=== PATIENT | female | born 1940 | race Caucasian/White ===

== ENCOUNTER 2016-08-13 12:41 | Observation (INO) | payer MEDICARE ==
[~2016-08-13] VITALS: Ht 167.6 cm; Wt 77.1 kg
[~2016-08-13 12:41] MED LIST: ALEV220T26 PO; COUM2.5T11 PO; FLUO20CA8 PO; METF500T PO; MULTIVITAMIN OR; PERC5TAB6 PO; SIMV20TA2 PO; VALA500T PO; VITMAIN D OR; citracal OR
--- NOTE | 2016-08-13 13:56 | REP ---
AP pelvis one-view and left hip two views: Comparisons 07/25/2014. AP pelvis: There are bilateral total hip arthroplasties,. There is question of a nondisplaced fracture of the left ischium. There is a fracture at the superior left pubic ramus at the left acetabulum. There is no fracture or dislocation of either arthroplasty. There are phleboliths inferiorly in the pelvis, unchanged. Left hip two views AP and frog-leg projections: There is a total hip arthroplasty. Nondisplaced fracture of the left ischium and nondisplaced fracture of the superior pubic ramus at the acetabulum are again noted. There is no fracture or dislocation of the arthroplasty or proximal femur. Signed by Tutu Waggnoer MD 08/13/2016 01:48 P
--- NOTE | 2016-08-13 14:02 | REP ---
Clinical: Trauma. Technique: AP, lateral, bilateral oblique, and coned-down views of the lumbosacral spine. Findings: Advanced multilevel degenerative changes include chronic levoconvex scoliosis, endplate sclerosis, anterior spurring, disc space narrowing and hypertrophic facet changes. No acute fracture / compression injury or subluxation. Impression: Advanced multilevel degenerative changes. No acute fracture or subluxation. Signed by Henry Michaels MD 08/13/2016 01:54 P
--- NOTE | 2016-08-13 14:57 | REP ---
Clinical: Pre admission. Pelvic fracture. Comparison: 10/09/2014 . Findings: The mediastinum and cardiac silhouette are stable and within normal limits for portable technique. The lung merlos are clear without acute consolidation, effusion, or pneumothorax. Skeletal structures are intact. Impression: Normal portable chest x-ray Signed by Henry Michaels MD 08/13/2016 02:48 P
[2016-08-13 15:14] LABS: MEAN CORPUSCULAR HEMOGLOBIN 35.7 pg (27.0-33.0); MEAN CORPUSCULAR HGB CONC 34.9 g/dl (32.0-36.5); MEAN CORPUSCULAR VOLUME 102.4 fl (80.0-96.0); RED CELL DISTRIBUTION WIDTH 12.9 % (11.5-14.5); WHITE BLOOD COUNT 8.4 K/mm3 (4.0-10.0)
[2016-08-13] MEDS ORDERED: VITMTA PO (15:16)
[2016-08-13] MEDS ORDERED: CITRTAB15 PO (15:16)
[2016-08-13] MEDS ORDERED: VITAD1000T PO (15:16)
[2016-08-13] MEDS ORDERED: VITA10002 PO (15:16)
[2016-08-13] MEDS ORDERED: FURO20TA2 PO (15:16)
[2016-08-13] MEDS ORDERED: PROP1TAB29 PO (15:16)
[2016-08-13] MEDS ORDERED: POTA20TA PO (15:18)
[2016-08-13] MEDS ORDERED: SPIR25TA2 PO (15:19)
[2016-08-13 15:32] LABS: ALBUMIN 3.2 GM/DL (3.2-5.2); ALBUMIN/GLOBULIN RATIO 0.97 (1.00-1.93); BILIRUBIN,DIRECT 0.3 MG/DL (0.0-0.2); BILIRUBIN,TOTAL 1.3 MG/DL (0.2-1.0); CALCIUM LEVEL 9.3 MG/DL (8.8-10.2); CREATININE FOR GFR 1.04 MG/DL (0.55-1.02); GLOMERULAR FILTRATION RATE 54.8 (>39); POTASSIUM SERUM 4.2 MEQ/L (3.5-5.1); TOTAL PROTEIN 6.5 GM/DL (6.4-8.2)
[2016-08-13 17:17] VITALS: BP 106/51
--- NOTE | 2016-08-13 18:04 | HPE ---
DATE OF ADMISSION: 08/13/2016 PRIMARY CARE PHYSICIAN: Dr. Carlos Escalera ATTENDING PHYSICIAN: Dr. Elisabeth Inman CHIEF COMPLAINT: Fall on driveway. HISTORY OF THE PRESENT ILLNESS: This is a 75-year-old female with a past medical history significant for osteoporosis, depression, fatty liver, history of type 2 diabetes mellitus, which is diet controlled, who presented today to the emergency department with a history of acute fall on her driveway. The patient reports falling on her driveway approximately at 11:00 a.m. this morning. She was returning home at the time. She reports slipping on her right foot and impacting on her left hip and left arm. She denies any loss of consciousness during or after the episode. She was able to crawl from her position into her home. She eventually settled down into a chair. She attempted, to stand up from the chair but was unable to. After two attempts, she decided to call 911. She was brought to the hospital by emergency medical services (EMS). Currently, the patient denies being in any pain. She does report having acute pain whenever she moves her left hip. She has full range of motion in the rest of her extremities including her right leg. At this time, the patient denies any fevers, shortness of breath, dyspnea, chest pain. She denies any numbness or tingling in the extremities. PAST MEDICAL HISTORY: Osteoporosis. Depression. Fatty liver. History of diet-controlled type 2 diabetes mellitus. Hypercholesterolemia. PAST SURGICAL HISTORY: Right hip arthroplasty in 2006. Left hip arthroplasty in 2014. Hysterectomy with bilateral oophorectomy in 1979. MEDICATIONS: - spironolactone 25 mg by mouth two times per day - propranolol 20 mg by mouth two times a day - fluoxetine 20 mg by mouth daily - valacyclovir 500 mg once daily - Klor-Con 20 mEq one tablet daily - furosemide 20 mg daily by mouth - simvastatin 20 mg by mouth every night - Citracal - multivitamin - vitamin D daily - vitamin B12 supplement daily ALLERGIES: SULFA, ADHESIVE TAPES and MACADAMIA NUTS. SOCIAL HISTORY: She lives by herself. She has one cat. The patient has a daughter in [place]. She states that she has a Medical Orders for Life-Sustaining Treatment (MOLST) form at home with a DO NOT RESUSCITATE (DNR) and DO NOT INTUBATE (DNI) signed. The patient denies a history of smoking. She does not drink any alcohol. She denies any illicit or recreational drugs. FAMILY HISTORY: The patient has a paternal grandmother and maternal grandmother with osteoarthritis. Reports that her mother has osteoarthritis and her mother dying from ovarian cancer. REVIEW OF SYSTEMS: CONSTITUTIONAL SYMPTOMS: Denies weight loss, night sweats, fatigue, fever. HEENT: Denies any head trauma. Denies any runny nose, ear pain, sore throat. CARDIOVASCULAR: Denies chest pain, shortness of breath, palpitations. RESPIRATORY: Denies cough, wheeze, shortness of breath. GASTROINTESTINAL: Admits to occasional diarrhea. Denies abdominal pain, nausea, vomiting, constipation, hematemesis, blood in the stool, black stools. GENITOURINARY: Denies any dysuria, incontinence, nocturia. MUSCULOSKELETAL: Admits to pain in the left hip, especially with movement. Denies joint pains elsewhere. Denies osteoarthritis. INTEGUMENTARY: Denies any new rashes or skin changes. PSYCHIATRIC: Admits to history of depression. No current depression or anxiety. NEUROLOGIC: No loss of consciousness, numbness or tingling in the extremities. PHYSICAL EXAMINATION: VITAL SIGNS: Blood pressure is 118/59, pulse is 63, respirations 18, temperature is 98.5, pulse oximetry is 98% on room air. Her weight is 76.2 kg. Height is 5 feet 6 inches. GENERAL: The patient is lying comfortably on the hospital bed. She does not appear to be in any acute distress. She is calm and cooperative. HEENT: Head is normocephalic, atraumatic. Her extraocular movements are intact bilaterally. Her pupils are equally round and reactive to light and accommodation. Her mucous membranes are moist. CARDIAC: Regular rate and rhythm, no murmurs appreciated. PULMONARY: Clear to auscultation bilaterally, no wheezes, rales, rhonchi. ABDOMEN: Soft, nontender, nondistended. Normoactive bowel sounds are heard throughout. MUSCULOSKELETAL: There is pain to palpation of the left hip. Unable to mobilize secondary to acute pain. She has full range of motion in her right hip and lower extremity. She is able to move her toes in her left and right lower extremities. EXTREMITIES: No edema in the lower extremities bilaterally. +2 pulses, pedal bilaterally, and radial. NEUROLOGIC: Cranial nerves II-XII are grossly intact. The patient is unable to ambulate secondary to left hip pain. Has full sensation throughout, no sensory loss. LABORATORY STUDIES: WBC is 8.4, hemoglobin 15.1, hematocrit 43.2, platelet count is 125, fasting glucose is 108, BUN 16, creatinine 1.04, GFR is 54.8. Sodium 138 , potassium 4.2, chloride 102, carbon dioxide 27, anion gap 9, calcium level is 9.3, AST is 62, ALT is 37. IMAGING STUDIES: Hip and pelvis x-ray completed on 08/13/2016 showed bilateral total hip arthroplasty with a question of nondisplaced fracture of the left ischium and a fracture at the superior left pubic ramus at the left acetabulum. There is no fracture or dislocation of the arthroplasty or proximal femur. X-ray of the lumbosacral spine which showed advanced multilevel degenerative changes and no acute fractures or subluxation. A chest x-ray which showed no acute disease. ASSESSMENT AND PLAN: This is a 75-year-old female with an acute pelvic fracture secondary to fall. We are admitting the patient to the medical unit for observation. At this time, we are going to conservatively manage her with pain control. Physical therapy will be consulted to evaluate and treat the patient. We are continuing her home medications for her fatty liver cirrhosis, depression, hypercholesterolemia. Orthopedic surgery, Dr. Donald, was contacted by the emergency department, and he recommended that the patient be managed by pain control and physical therapy. We will contact orthopedic surgery for a consultation if there are any complications that arise. The plan was discussed with the patient, and she was agreeable to the plan. My attending for this encounter is Dr. Elisabeth Inman. My preceptor for this patient encounter was Dr. Elisabeth Inman. The preceptor was physically present in the building during the encounter and was fully available. As needed, all aspects of the patient interview, examination, medical decision making process, and medical care plan development were reviewed and approved by the preceptor. The preceptor is aware and concurs with the plan as stated in the body of this note and will attest to such by his/her cosignature. MEENU
--- NOTE | 2016-08-13 18:18 | EDDOCDS ---
Physician Documentation [facility] Name: Ciara Ojeda Age: 75 yrs Sex: Female : 1940 Arrival Date: 08/13/2016 Time: 12:41 Bed 7 Private MD: Disposition: 08/13 15:39 Critical Care: Critical care not applicable. pc Disposition: 08/13/16 15:40 Hospitalization ordered by Elisabeth Inman for Inpatient Admission. Preliminary diagnosis are Multiple fractures of pelvis with stable disruption of pelvic ring - left, Unspecified cirrhosis of liver. - Bed requested for 5 [place]. - Status is Inpatient Admission. ms18 - Condition is Stable. - Problem is new. - Symptoms have improved. HPI: 13:04 This 75 yrs old Female presents to ER via Ambulance with complaints of Fall pc Injury, Hip Pain. 13:04 The history is obtained from the patient. She slipped in her driveway and landed on her pc left hip. he was unable to bear weight on it, so she crawled on her knees to get back into her home. She denies any knee pain, denies other injuries. She has had some low back pain since being transported by EMS. She denies any numbness or weakness of her left LEs. At their worst, the symptoms were a 4 out of 10. In the emergency department, the symptoms are a 2 out of 10. The patient has not experienced similar symptoms in the past. The patient has not recently seen a physician. Historical: - Allergies: SULFA (SULFONAMIDES); Adhesives; macadamia nuts; - Home Meds: 1. spironolactone 25 mg Oral tab 1 tab 2 times per day (Last dose: 08/13/2016 08:00) 2. propranolol 20 mg Oral tab 1 tab 2 times per day (Last dose: 08/13/2016 08:00) 3. fluoxetine 20 mg Oral tab 1 tab once daily (Last dose: 08/13/2016 08:00) 4. valacyclovir 500 mg Oral tab 1 tab once daily (Last dose: 08/13/2016 08:00) 5. Klor-Con M20 20 mEq Oral TbTQ 1 tab once daily (Last dose: 08/13/2016 08:00) 6. furosemide 20 mg Oral tab 1 tab once daily (Last dose: 08/13/2016 08:00) 7. simvastatin 20 mg Oral tab 1 tab nightly (Last dose: 08/12/2016) 8. Citracal Oral Unknown daily 9. multivitamin Oral tab 10. Vitamin D Oral daily 11. Vitamin B-12 Oral daily - PMHx: Osteoporosis; Depression; Cirrhosis; - PSHx: Hip Arthroplasty, Left; Hip Arthroplasty, Right; Hysterectomy; Oophorectomy- bilateral; - The history from nurses notes was reviewed: and I agree with what is documented. - Social history: Smoking status: Patient states was never smoker of tobacco. No barriers to communication noted, The patient speaks fluent Bulgarian. - : The pt / caregiver states he / she is not on anticoagulants. Home medication list is obtained from the patient. - Hospitalizations: : No recent hospitalization is reported. - Exposure Risk Screening:: None identified. - Immunization history:: All immunizations up-to-date. - Family history: Not pertinent. - Social history:: the patient is a non-smoker, the patient does not drink alcohol. ROS: 13:04 All systems are negative except as listed. pc Exam: 13:04 General Appearance: no acute distress, alert. pc 13:04 EENT: normal eye inspection, ears, nose and throat normal, pharynx normal, mucous membranes moist 13:04 Neck: The exam reveals no acute abnormalities. ROM is normal and painless. No nuchal rigidity is noted.. 13:04 Respiratory: no respiratory distress, normal breath sounds. 13:04 CVS: regular pulse rate, regular rhythm, normal S1 and S2, no murmurs, strong peripheral pulses. 13:04 Abdomen: soft, non-tender, no organomegaly, normal bowel sounds. 13:04 Back: Pain is noted in the left low back, over buttocks and left SI joint only. 13:04 Skin: skin color is normal, warm, dry. 13:04 Extremities: grossly normal except: noted in the left hip: tenderness, but with normal ROM, Extremities: grossly normal except: noted in the left hip: tenderness, but with normal ROM. 13:04 Neuro: no motor deficits, no sensory deficits. 13:04 Psych: normal mood. Vital Signs: 13:04 BP 118 / 59; Pulse 63; Resp 18; Temp 98.5(TE); Pulse Ox 98% on R/A; Weight 76.2 kg / dem1 167.99 lbs (R); Height 5 ft. 6 in. (167.64 cm) (R); Pain 2/10; 17:14 BP 106 / 51; Pulse 68; Resp 20; Temp 100.1(O); Pulse Ox 97% on R/A; Pain 0/10; ms18 17:16 BP 103 / 58; Pulse 73; Resp 16; Temp 98.3(O); Pulse Ox 96% on R/A; Pain 0/10; ld5 13:04 Body Mass Index 27.12 (76.20 kg, 167.64 cm) dem1 MDM: 13:04 Differential Diagnosis: fall, left hip contusion, low back contusion. Plan: imaging, pc analgesia declined. 13:05 Hip,AP,LAT to include Pelvis Ordered. EDMS 13:05 Spine. Lumbosacral, Complete Ordered. EDMS 14:17 ECG WITH READING ER PHYS+CARDIAG ordered. EDMS 14:18 CBC Ordered. EDMS 14:18 MED Profile Ordered. EDMS 14:18 Liver Profile Ordered. EDMS 14:18 Chest, 1 View Ordered. EDMS 14:18 BED REQUEST+ADM ordered. EDMS 14:56 Test interpretation: EKG. pc 14:56 Data reviewed: old medical records, vital signs, nurses notes, EKG(s), lab test pc results, all radiology studies and available results. Test interpretation: X-RAY - interpreted by Radiologist and personally reviewed, 1 view chest no acute disease, Hip Left Normal Pelvis Fracture Superior ramus Inferior ramus left LS-Spine Normal. 14:57 Physician consultation: Dr. Yuriy Donald regarding patient's condition, and he advises pc that she be treated with weight bearing as tolerated and will consult if requested by the Hospitalist . 14:57 Physician consultation:. pc 15:15 Spine. Lumbosacral, Complete Reviewed. pc 15:15 Hip,AP,LAT to include Pelvis Reviewed. pc 15:36 CBC Reviewed. pc 15:36 MED Profile Reviewed. pc 15:36 Liver Profile Reviewed. pc 15:39 The patient has been re-examined and re-evaluated. The patient's symptoms have mildly pc improved after treatment. Physician consultation: Dr. Elisabeth Inman was contacted at 15:39, regarding admission. Disposition: The historical points, examination findings, and any diagnostic results supporting the provided diagnosis, were discussed with the patient or legal guardian. The need for further work-up and/or treatment in the hospital was explained. 16:05 Admission / Observation Status ordered. EDMS 16:28 Financial registration complete. zo 16:28 [facility] Payment Agreement was scanned into [employer] and attached to record. zo 17:10 REGULAR DIET ordered. EDMS 17:11 PHYSICAL THERAPY EVAL & TREAT ordered. EDMS EC:56 Rate is 65 beats/min. Rhythm is regular, Normal Sinus Rhythm. QRS [place] is Normal. OR pc interval is normal. QRS interval is normal. QT interval is normal. No Q waves. T waves are Normal. No ST changes noted. Clinical impression: Normal Sinus Rhythm. Signatures: Dispatcher MedOTOY EDKS Nilson Chappell MD MD pc Greene, Daniel, RN RN Johan Giron Mallory, RN RN ms18 The chart was reviewed and I authenticate all verbal orders and agree with the evaluation and treatment provided.Corrections: (The following items were deleted from the chart) 17:12 16:32 CLEAR LIQUIDS DIET ordered. EDMS EDMS Attachments: 16:28 [facility] Payment Agreement zo MTDD
--- NOTE | 2016-08-13 18:19 | EDDOCDS ---
Nurse's Notes [facility] Name: Ciara Ojeda Age: 75 yrs Sex: Female : 1940 Arrival Date: 08/13/2016 Time: 12:41 Bed 7 Private MD: Diagnosis: Multiple fractures of pelvis with stable disruption of pelvic ring-left;Unspecified cirrhosis of liver Presentation: 08/13 12:50 Presenting complaint: Patient states: Pt fell in the driveway and crawled back to the [facility] due to severe L hip pain. Pt states that she was unable to stand up after her fall. Adult Sepsis Screening: The patient does not have new or worsening altered mentation. Patient's respiratory rate is less than 22. Systolic blood pressure is greater than 100. Patient has a qSOFA score of 0- Negative Sepsis Screen. Suicide/Homicide risk assessment- the patient denies having any suicidal and/or homicidal ideations and does not present with any other emotional, behavioral or mental health complaints. Status: Patient is not a donor services technician or dependent. Transition of care: patient was not received from another setting of care. Care prior to arrival: See EMS report. 12:50 Acuity: STANLEY Level 3 ms18 12:50 Method Of Arrival: Ambulance ne18 Triage Assessment: 13:03 General: Appears in no apparent distress, comfortable, Behavior is appropriate for age, ms18 cooperative, pleasant. Pain: Location: left hip Pain currently is 2 out of 10 on a pain scale. At worst was 10 out of 10 on a pain scale. Aggravated by weight bearing, standing. Neurological: Level of Consciousness is awake, alert, obeys commands, Oriented to person, place, time, Moves all extremities. Speech is normal. Respiratory: Airway is patent Respiratory effort is even, unlabored. Derm: Skin is pink, warm & dry. normal. Musculoskeletal: Range of motion limited in left hip. Historical: - Allergies: SULFA (SULFONAMIDES); Adhesives; macadamia nuts; - Home Meds: 1. spironolactone 25 mg Oral tab 1 tab 2 times per day (Last dose: 08/13/2016 08:00) 2. propranolol 20 mg Oral tab 1 tab 2 times per day (Last dose: 08/13/2016 08:00) 3. fluoxetine 20 mg Oral tab 1 tab once daily (Last dose: 08/13/2016 08:00) 4. valacyclovir 500 mg Oral tab 1 tab once daily (Last dose: 08/13/2016 08:00) 5. Klor-Con M20 20 mEq Oral TbTQ 1 tab once daily (Last dose: 08/13/2016 08:00) 6. furosemide 20 mg Oral tab 1 tab once daily (Last dose: 08/13/2016 08:00) 7. simvastatin 20 mg Oral tab 1 tab nightly (Last dose: 08/12/2016) 8. Citracal Oral Unknown daily 9. multivitamin Oral tab 10. Vitamin D Oral daily 11. Vitamin B-12 Oral daily - PMHx: Osteoporosis; Depression; Cirrhosis; - PSHx: Hip Arthroplasty, Left; Hip Arthroplasty, Right; Hysterectomy; Oophorectomy- bilateral; - The history from nurses notes was reviewed: and I agree with what is documented. - Social history: Smoking status: Patient states was never smoker of tobacco. No barriers to communication noted, The patient speaks fluent Barb[place]. - : The pt / caregiver states he / she is not on anticoagulants. Home medication list is obtained from the patient. - Hospitalizations: : No recent hospitalization is reported. - Exposure Risk Screening:: None identified. - Immunization history:: All immunizations up-to-date. - Family history: Not pertinent. - Social history:: the patient is a non-smoker, the patient does not drink alcohol. Screenin:08 Screening information is obtained from the patient. Fall risk: At risk due to prior ms18 history of falls. Assistance ADL's: requires no assistance with activities of daily living. Abuse/DV Screen: The patient / caregiver reports he/she is: not in a situation that causes fear, pain or injury. Nutritional screening: No deficits noted. Advance Directives: Currently, there is a health care proxy, Filomena Padilla, Pt's daughter. home support is adequate. Assessment: 13:38 General: Appears in no apparent distress, comfortable, Behavior is appropriate for age, ms18 cooperative, pleasant. Pain: Location: pelvis and left hip Pain currently is 2 out of 10 on a pain scale. Respiratory: Airway is patent Respiratory effort is even, unlabored. GI: Abdomen is non- distended. Derm: Skin is intact, Skin is pink, warm & dry. normal. 14:50 General: Appears in no apparent distress, comfortable, Behavior is appropriate for age, ms18 cooperative, pleasant. Neurological: Level of Consciousness is awake, alert, obeys commands, Oriented to person, place, time. Respiratory: Airway is patent Respiratory effort is even, unlabored. Derm: Skin is pink, warm & dry. normal. 15:54 General: Appears in no apparent distress, comfortable, PT in no acute distress. Will ms18 continue to monitor pt. Respiratory: No deficits noted. Derm: Skin is intact, Skin is pink, warm & dry. normal. 16:38 General: Appears in no apparent distress, comfortable, Behavior is appropriate for age, ms18 cooperative, pleasant. Pain: Denies pain. Neurological: Level of Consciousness is awake, alert, obeys commands, Oriented to person, place, time. Respiratory: No deficits noted. Derm: Skin is pink, warm & dry. normal. 17:14 General: Appears in no apparent distress, comfortable, Behavior is appropriate for age, ms18 cooperative, pleasant. General: Will send SBAR at this time. Pain: Denies pain. Neurological: Level of Consciousness is awake, alert, obeys commands, Oriented to person, place, time. Respiratory: Airway is patent Respiratory effort is even, unlabored. GI: Abdomen is non- distended. Derm: Skin is pink, warm & dry. 18:10 General: Appears in no apparent distress, comfortable, Behavior is appropriate for age, ms18 cooperative, pleasant. Pain: Denies pain. Neurological: Level of Consciousness is awake, alert, obeys commands, Oriented to person, place, time. Respiratory: Airway is patent Respiratory effort is even, unlabored. Derm: Skin is pink, warm & dry. normal. Vital Signs: 13:04 BP 118 / 59; Pulse 63; Resp 18; Temp 98.5(TE); Pulse Ox 98% on R/A; Weight 76.2 kg (R); dem1 Height 5 ft. 6 in. (167.64 cm) (R); Pain 2/10; 17:14 BP 106 / 51; Pulse 68; Resp 20; Temp 100.1(O); Pulse Ox 97% on R/A; Pain 0/10; ms18 17:16 BP 103 / 58; Pulse 73; Resp 16; Temp 98.3(O); Pulse Ox 96% on R/A; Pain 0/10; ld5 13:04 Body Mass Index 27.12 (76.20 kg, 167.64 cm) dem1 Vitals: 13:04 Log In Time N/A - ambulance arrival. [facility] ED Course: 12:42 Patient visited by Jeannette Jasmine, Press And Blow Machine Tender. deg 12:42 Oralia Sharp RN is Primary Nurse. deg 12:42 Patient moved to Waiting deg 12:42 Patient moved to 7 deg 12:46 Nilson Chappell MD is Attending Physician. pc 12:50 Patient visited by Oralia Sharp RN. ms18 12:52 Triage Initiated ms18 13:03 Patient visited by Nilson Chappell MD. pc 13:04 Cleaned of incontinence. dem1 13:05 Patient visited by Rufina Dhillon. dem1 13:08 The patient / caregiver is instructed regarding the plan of care and ED course. Patient ms18 has correct armband on for positive identification. Placed in gown. Bed in low position. Call light in reach. Side rails up X2. Property :Personal belongings accompany Pt. 14:07 Patient visited by Nilson Chappell MD. pc 14:08 Hip,AP,LAT to include Pelvis Returned. EDMS 14:08 Spine. Lumbosacral, Complete Returned. EDMS 14:51 Patient visited by Oralia Sharp RN. ms18 14:53 Patient visited by Carly Galeana. nb2 14:53 EKG done. (by ED staff). Reviewed by Nilson Chappell MD. nb2 15:05 Patient visited by Oralia Sharp RN. ms18 15:05 Liver Profile Sent. ms18 15:05 MED Profile Sent. ms18 15:05 CBC Sent. ms18 15:06 Inserted saline lock: 20 gauge in right antecubital area and blood collected. The ms18 patient tolerated the procedure well. 15:40 Elisabeth Inman is Hospitalizing Provider. pc 15:41 Chest, 1 View Returned. EDMS 16:28 [facility] Payment Agreement was scanned into [employer] and attached to record. zo 17:14 No procedures done that require assistance. ms18 17:18 Patient visited by Oralia Sharp RN. ms18 Order Results: Lab Order: CBC; SPEC'M 08/13/16 14:56 Test: WHITE BLOOD COUNT; Value: 8.4; Range: 4.0-10.0; Units: K/mm3; Status: F Test: RED BLOOD COUNT; Value: 4.21; Range: 4.00-5.40; Units: M/mm3; Status: F Test: HEMOGLOBIN; Value: 15.1; Range: 12.0-16.0; Units: g/dl; Status: F Test: HEMATOCRIT; Value: 43.2; Range: 36.0-47.0; Units: %; Status: F Test: MEAN CORPUSCULAR VOLUME; Value: 102.4; Range: 80.0-96.0; Abnormal: Above high normal; Units: fl; Status: F Test: MEAN CORPUSCULAR HEMOGLOBIN; Value: 35.7; Range: 27.0-33.0; Abnormal: Above high normal; Units: pg; Status: F Test: MEAN CORPUSCULAR HGB CONC; Value: 34.9; Range: 32.0-36.5; Units: g/dl; Status: F Test: RED CELL DISTRIBUTION WIDTH; Value: 12.9; Range: 11.5-14.5; Units: %; Status: F Test: PLATELET COUNT, AUTOMATED; Value: 125; Range: 150-450; Abnormal: Below low normal; Units: k/mm3; Status: F Lab Order: [facility] 08/13/16 14:56 Test: GLUCOSE, FASTING; Value: 108; Range: 83-110; Units: MG/DL; Status: F Test: BLOOD UREA NITROGEN; Value: 16; Range: 7-18; Units: MG/DL; Status: F Test: CREATININE FOR GFR; Value: 1.04; Range: 0.55-1.02; Abnormal: Above high normal; Units: MG/DL; Status: F Test: GLOMERULAR FILTRATION RATE; Value: 54.8; Range: >39; Status: F Test: SODIUM LEVEL; Value: 138; Range: 136-145; Units: MEQ/L; Status: F Test: POTASSIUM SERUM; Value: 4.2; Range: 3.5-5.1; Units: MEQ/L; Status: F Test: CHLORIDE LEVEL; Value: 102; Range: 98-107; Units: MEQ/L; Status: F Test: CARBON DIOXIDE LEVEL; Value: 27; Range: 21-32; Units: MEQ/L; Status: F Test: ANION GAP; Value: 9; Range: 8-16; Units: MEQ/L; Status: F Test: CALCIUM LEVEL; Value: 9.3; Range: 8.8-10.2; Units: MG/DL; Status: F Test Note: ; Units are mL/min/1.73 m2 Chronic Kidney Disease Staging per NKF: Stage I & II GFR >=60 Normal to Mildly Decreased Stage III GFR 30-59 Moderately Decreased Stage IV GFR 15-29 Severely Decreased Stage V GFR <15 Very Little GFR Left ESRD GFR <15 on DESIGN CELL ENGINEER Lab Order: Liver Profile; SPEC'M 08/13/16 14:56 Test: AST/SGOT; Value: 62; Range: 15-37; Abnormal: Above high normal; Units: U/L; Status: F Test: ALT/SGPT; Value: 37; Range: 12-78; Units: U/L; Status: F Test: ALKALINE PHOSPHATASE; Value: 114; Range: 45-117; Units: U/L; Status: F Test: BILIRUBIN,TOTAL; Value: 1.3; Range: 0.2-1.0; Abnormal: Above high normal; Units: MG/DL; Status: F Test: BILIRUBIN,DIRECT; Value: 0.3; Range: 0.0-0.2; Abnormal: Above high normal; Units: MG/DL; Status: F Test: TOTAL PROTEIN; Value: 6.5; Range: 6.4-8.2; Units: GM/DL; Status: F Test: ALBUMIN; Value: 3.2; Range: 3.2-5.2; Units: GM/DL; Status: F Test: ALBUMIN/GLOBULIN RATIO; Value: 0.97; Range: 1.00-1.93; Abnormal: Below low normal; Status: F Radiology Order: Hip,AP,LAT to include Pelvis Test: Hip,AP,LAT to include Pelvis REASON FOR EXAMINATION: Trauma; AP pelvis one-view and left hip two views:; ; Comparisons 07/25/2014.; ; AP pelvis:; ; There are bilateral total hip arthroplasties,. There is question of a; nondisplaced fracture of the left ischium. There is a fracture at the superior; left pubic ramus at the left acetabulum.; ; There is no fracture or dislocation of either arthroplasty.; ; There are phleboliths inferiorly in the pelvis, unchanged.; ; Left hip two views AP and frog-leg projections:; ; There is a total hip arthroplasty.; ; Nondisplaced fracture of the left ischium and nondisplaced fracture of the; superior pubic ramus at the acetabulum are again noted.; ; There is no fracture or dislocation of the arthroplasty or proximal femur.; ; ; Signed by; Tutu Waggoner MD 08/13/2016 01:48 P; Radiology Order: Spine. Lumbosacral, Complete Test: Spine. Lumbosacral, Complete REASON FOR EXAMINATION: Trauma; Clinical: Trauma.; ; Technique: AP, lateral, bilateral oblique, and coned-down views of the; lumbosacral spine.; ; Findings:; Advanced multilevel degenerative changes include chronic levoconvex scoliosis,; endplate sclerosis, anterior spurring, disc space narrowing and hypertrophic; facet changes. No acute fracture / compression injury or subluxation.; ; Impression:; Advanced multilevel degenerative changes. No acute fracture or subluxation.; ; ; Signed by; Henry Michaels MD 08/13/2016 01:54 P; Radiology Order: Chest, 1 View Test: Chest, 1 View REASON FOR EXAMINATION: for admission; Clinical: Pre admission. Pelvic fracture.; ; Comparison: 10/09/2014 .; ; Findings:; The mediastinum and cardiac silhouette are stable and within normal limits for; portable technique. The lung merlos are clear without acute consolidation,; effusion, or pneumothorax. Skeletal structures are intact.; ; Impression:; Normal portable chest x-ray; ; ; Signed by; Henry Michaels MD 08/13/2016 02:48 P; Outcome: 15:40 Decision to Hospitalize by Provider. pc 17:19 Discharge Assessment: Patient awake and alert. obeys commands, Oriented to person, ms18 place and time. Patient verbalized understanding of disposition instructions. patient administered narcotics - no. The following High Risk Discharge criteria are identified: None. Admitted to Med/Surg accompanied by tech, via stretcher, with chart. Condition: good Condition: stable. No special radiology studies were completed. 18:17 Patient left the ED. ms18 Signatures: Dispatcher [facility] EDMS Nilson Chappell MD MD pc Murray, Denise, Press And Blow Machine Tender Unit deg Johan Patel Laura,RN RN ld5 Rufina Dhillon1 Oralia Sharp RN RN ms18 Carly Galeana2 MTDD
[2016-08-13 18:30] VITALS: BP 142/72
[2016-08-13] MEDS: HEPARIN SOD (PORCINE) 5000 UNITS/ML VIAL SC SCH (21:27)
[2016-08-13] MEDS: PROPRANOLOL 20 MG TAB PO SCH (21:28)
[2016-08-13] MEDS: SPIRONOLACTONE 25 MG TAB PO SCH (21:28)
[2016-08-13] MEDS: SIMVASTATIN 20 MG TAB PO SCH (21:29)
[2016-08-13 22:00] VITALS: BP 142/69
[2016-08-13] MEDS: IBUPROFEN 600 MG TAB PO SCH (23:40)
[2016-08-14 06:00] VITALS: BP 144/71
[2016-08-14] MEDS: IBUPROFEN 600 MG TAB PO SCH (06:06)
[2016-08-14] MEDS: HEPARIN SOD (PORCINE) 5000 UNITS/ML VIAL SC SCH ×3 (06:06→20:02)
[2016-08-14 06:35] LABS: MEAN CORPUSCULAR HGB CONC 34.3 g/dl (32.0-36.5); MEAN CORPUSCULAR VOLUME 102.2 fl (80.0-96.0); WHITE BLOOD COUNT 9.8 K/mm3 (4.0-10.0)
[2016-08-14 06:48] LABS: CALCIUM LEVEL 8.4 MG/DL (8.8-10.2); CREATININE FOR GFR 1.54 MG/DL (0.55-1.02); GLOMERULAR FILTRATION RATE 34.9 (>39); POTASSIUM SERUM 3.9 MEQ/L (3.5-5.1)
[2016-08-14] MEDS ORDERED: ACETAMINOPHEN TAB 650MG DOSE (2X325MG) PO PRN (07:30)
[2016-08-14] MEDS ORDERED: DEXTROSE 50% 50 ML SYRINGE IV PRN (07:45)
[2016-08-14] MEDS ORDERED: GLUCAGON FOR INJ 1 MG VIAL (J1610) SC PRN (07:45)
[2016-08-14] MEDS ORDERED: GLUCOSE 4 GM CHEW TABLET PO PRN (07:45)
[2016-08-14] MEDS: HumaLOG INSULIN (NovoLOG) PER UNIT SC SCH ×3 (07:53→18:00)
[2016-08-14] MEDS: SPIRONOLACTONE 25 MG TAB PO SCH ×2 (08:54→20:01)
[2016-08-14] MEDS: PROPRANOLOL 20 MG TAB PO SCH ×2 (08:54→20:01)
[2016-08-14] MEDS: FLUoxetine 20 MG CAP PO SCH (08:54)
[2016-08-14] MEDS: NS 1,000 ML IV SCH (08:54)
[2016-08-14] MEDS ORDERED: FUROSEMIDE 20 MG TAB PO SCH (09:00)
[2016-08-14] MEDS ORDERED: MORPHINE 15 MG SA TAB PO SCH (09:00)
[2016-08-14 14:00] VITALS: BP 108/56
--- NOTE | 2016-08-14 15:43 | IPNPDOC ---
Subjective Date Seen The patient was seen on 08/14/16. Subjective Chief Complaint/HPI The patient is a 75-year-old female admitted with a reason for visit of Pelvic Fx. Events since last encounter pt seen and examined, pain is controlled, Constitutional: Denies: Chills, Fever, Night Sweats Skin: Denies: Breakdown, Lesions, Rash Objective Physical Examination Eye Exam: Positive: Conjunctiva & lids normal, EOMI, PERRLA, Negative: Sclera icteric Neck Exam: Positive: Supple, Negative: JVD, thyromegaly Chest Exam: Positive: Clear to auscultation, Normal air movement Abdomen Exam: Positive: Normal bowel sounds, Soft, Negative: Hepatospenomegaly, Tenderness Extremity Exam: Positive: Edema, Normal pulses, Tenderness, Negative: Clubbing, Cyanosis Assessment /Plan Problems (1) Pelvic fracture Status: Acute Problem Text: * ortho consulted * PT/OT pain is controlled (2) Hgohz-ki-qpbjlal kidney injury Status: Acute Problem Text: * will d/c NSAIDs * start low rate NS * recheck in am (3) 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) Status: Chronic Response to Treatment: Stable (4) Osteoarthritis of left hip Status: Chronic Response to Treatment: Stable Plan/VTE VTE Prophylaxis Ordered?: Yes VS, I&O, 24H, [facility] Vital Signs/I&O Vital Signs Date Time Temp Pulse Resp B/P Pulse Ox O2 Delivery O2 Flow Rate FiO2 08/14/16 08:55 16 08/14/16 08:54 64 144/71 08/14/16 06:00 97.4 95 Room Air I&O- Last 24 Hours up to 6 AM 08/14/16 05:59 Intake Total 600 ml Output Total 0 ml Balance 600 ml Laboratory Data 24H LABS Laboratory Tests 2 08/14/16 06:17: Anion Gap 11, Blood Urea Nitrogen 21H, Creatinine 1.54H, Sodium Level 141, Potassium Level 3.9, Chloride Level 103, Carbon Dioxide Level 27, Calcium Level 8.4L, Glomerular Filtration Rate 34.9L 08/14/16 08:11: Urine Amorphous Sediment , Urine Appearance CLOUDYH, Urine Color ALL, Urine pH 6.0, Urine Specific [place] 1.013, Urine Protein 1+H, Urine Glucose (UA) NEGATIVE, Urine Ketones TRACEH, Urine Urobilinogen 0.2, Urine Bilirubin NEGATIVE , Urine Leukocyte Esterase 3+H, Urine Bacteria (Auto) 2+H, Urine Blood 3+H, Urine Calcium Carbonate Cryst(Auto) , Urine Calcium Oxalate Cryst (Auto) , Urine Calcium Phosphate Rona (Auto) , Urine Cellular Casts , Urine Cystine Crystals , Urine Granular Casts (Auto) , Urine Hyaline Casts (Auto) 7, Urine Leucine Crystals , Urine Mucus (Auto) SMALL, Urine Nitrite NEGATIVE, Urine Oval Fat Bodies (Auto) , Urine RBC (Auto) 46H, Urine Renal Epithelial Cells , Urine Sperm (Auto) , Urine Squamous Epithelial Cells 2, Urine Transitional Epithelial Cells , Urine Trichomonas (Auto) , Urine Triple Phosphate Cryst (Auto) , Urine Tyrosine Crystals , Urine Uric Acid Crystals (Auto) , Urine WBC (Auto) TNTCH, Urine Waxy Casts (Auto) , Urine Yeast-Like Cells (Auto) 08/14/16 12:01: Bedside Glucose (Misc Panel) 100 CBC/BMP Laboratory Tests 08/14/16 06:17 Calcium Level 8.4 L, Red Blood Count 3.95 L, Mean Corpuscular Volume 102.2 H, Mean Corpuscular Hemoglobin 35.0 H, Mean Corpuscular Hemoglobin Concent 34.3, Red Cell Distribution Width 13.0 Microbiology Microbiology 08/14/16 Urine Culture, Received Pending KATHLEEN HOFFMAN DO Aug 14, 2016 15:43
--- NOTE | 2016-08-14 19:43 | ECGEPIP ---
Stationary ECG Study [facility] - ED Test Date: 2016-08-13 Pat Name: VINICIO LEÓN Department: Room: - Gender: F Heavy Media Operator: nathan : 1940 Requested By: Nilson Ibanez Order Number: [id number] Reading MD: Alejandrina Vegas Measurements Intervals [place] Rate: 65 P: 15 ME: 144 QRS: 49 QRSD: 84 T: 37 QT: 432 QTc: 450 Interpretive Statements SINUS RHYTHM NSTTW ABNORMALITY DECREASED RATE 07/10/14 Electronically Signed On 08-14-2016 19:42:55 EST by Alejandrina Vegas
[2016-08-14] MEDS: SIMVASTATIN 20 MG TAB PO SCH (20:02)
[2016-08-14] MEDS ORDERED: HumaLOG INSULIN (NovoLOG) PER UNIT SC SCH (21:00)
[2016-08-14] MEDS ORDERED: MORPHINE 15 MG SA TAB PO PRN (21:00)
[2016-08-14 22:00] VITALS: BP 101/61
[2016-08-15] MEDS: NS 1,000 ML IV SCH (00:14)
[2016-08-15] MEDS: HEPARIN SOD (PORCINE) 5000 UNITS/ML VIAL SC SCH (05:41)
[2016-08-15] MEDS ORDERED: IBUPROFEN 400 MG TAB PO PRN (05:45)
[2016-08-15] MEDS ORDERED: IBUPROFEN 600 MG TAB PO PRN (05:45)
[2016-08-15 06:00] VITALS: BP 119/63
[2016-08-15 06:54] LABS: CALCIUM LEVEL 8.2 MG/DL (8.8-10.2); CREATININE FOR GFR 1.59 MG/DL (0.55-1.02); GLOMERULAR FILTRATION RATE 33.6 (>39); POTASSIUM SERUM 4.6 MEQ/L (3.5-5.1)
[2016-08-15 06:56] LABS: MEAN CORPUSCULAR HEMOGLOBIN 34.6 pg (27.0-33.0); MEAN CORPUSCULAR HGB CONC 33.7 g/dl (32.0-36.5); MEAN CORPUSCULAR VOLUME 102.5 fl (80.0-96.0); RED CELL DISTRIBUTION WIDTH 13.1 % (11.5-14.5); WHITE BLOOD COUNT 8.9 K/mm3 (4.0-10.0)
[2016-08-15] MEDS: HumaLOG INSULIN (NovoLOG) PER UNIT SC SCH ×2 (07:30→12:00)
[2016-08-15 08:48] VITALS: BP 119/63
[2016-08-15] MEDS: FLUoxetine 20 MG CAP PO SCH (08:48)
[2016-08-15] MEDS: PROPRANOLOL 20 MG TAB PO SCH (08:48)
[2016-08-15] MEDS: SPIRONOLACTONE 25 MG TAB PO SCH (08:49)
--- NOTE | 2016-08-15 19:18 | EDDOCDS ---
Physician Documentation [facility] Name: Ciara Ojeda Age: 75 yrs Sex: Female : 1940 Arrival Date: 08/13/2016 Time: 12:41 Bed 7 Private MD: Disposition: 08/13 15:39 Critical Care: Critical care not applicable. pc Disposition: 08/13/16 15:40 Hospitalization ordered by Elisabeth Inman for Inpatient Admission. Preliminary diagnosis are Multiple fractures of pelvis with stable disruption of pelvic ring - left, Unspecified cirrhosis of liver. - Bed requested for 5 [facility]. - Status is Inpatient Admission. ms18 - Condition is Stable. - Problem is new. - Symptoms have improved. HPI: 13:04 This 75 yrs old Female presents to ER via Ambulance with complaints of Fall pc Injury, Hip Pain. 13:04 The history is obtained from the patient. She slipped in her driveway and landed on her pc left hip. he was unable to bear weight on it, so she crawled on her knees to get back into her home. She denies any knee pain, denies other injuries. She has had some low back pain since being transported by EMS. She denies any numbness or weakness of her left LEs. At their worst, the symptoms were a 4 out of 10. In the emergency department, the symptoms are a 2 out of 10. The patient has not experienced similar symptoms in the past. The patient has not recently seen a physician. Historical: - Allergies: SULFA (SULFONAMIDES); Adhesives; macadamia nuts; - Home Meds: 1. spironolactone 25 mg Oral tab 1 tab 2 times per day (Last dose: 08/13/2016 08:00) 2. propranolol 20 mg Oral tab 1 tab 2 times per day (Last dose: 08/13/2016 08:00) 3. fluoxetine 20 mg Oral tab 1 tab once daily (Last dose: 08/13/2016 08:00) 4. valacyclovir 500 mg Oral tab 1 tab once daily (Last dose: 08/13/2016 08:00) 5. Klor-Con M20 20 mEq Oral TbTQ 1 tab once daily (Last dose: 08/13/2016 08:00) 6. furosemide 20 mg Oral tab 1 tab once daily (Last dose: 08/13/2016 08:00) 7. simvastatin 20 mg Oral tab 1 tab nightly (Last dose: 08/12/2016) 8. Citracal Oral Unknown daily 9. multivitamin Oral tab 10. Vitamin D Oral daily 11. Vitamin B-12 Oral daily - PMHx: Osteoporosis; Depression; Cirrhosis; - PSHx: Hip Arthroplasty, Left; Hip Arthroplasty, Right; Hysterectomy; Oophorectomy- bilateral; - The history from nurses notes was reviewed: and I agree with what is documented. - Social history: Smoking status: Patient states was never smoker of tobacco. No barriers to communication noted, The patient speaks fluent Singaporean. - : The pt / caregiver states he / she is not on anticoagulants. Home medication list is obtained from the patient. - Hospitalizations: : No recent hospitalization is reported. - Exposure Risk Screening:: None identified. - Immunization history:: All immunizations up-to-date. - Family history: Not pertinent. - Social history:: the patient is a non-smoker, the patient does not drink alcohol. ROS: 13:04 All systems are negative except as listed. pc Exam: 13:04 General Appearance: no acute distress, alert. pc 13:04 EENT: normal eye inspection, ears, nose and throat normal, pharynx normal, mucous membranes moist 13:04 Neck: The exam reveals no acute abnormalities. ROM is normal and painless. No nuchal rigidity is noted.. 13:04 Respiratory: no respiratory distress, normal breath sounds. 13:04 CVS: regular pulse rate, regular rhythm, normal S1 and S2, no murmurs, strong peripheral pulses. 13:04 Abdomen: soft, non-tender, no organomegaly, normal bowel sounds. 13:04 Back: Pain is noted in the left low back, over buttocks and left SI joint only. 13:04 Skin: skin color is normal, warm, dry. 13:04 Extremities: grossly normal except: noted in the left hip: tenderness, but with normal ROM, Extremities: grossly normal except: noted in the left hip: tenderness, but with normal ROM. 13:04 Neuro: no motor deficits, no sensory deficits. 13:04 Psych: normal mood. Vital Signs: 13:04 BP 118 / 59; Pulse 63; Resp 18; Temp 98.5(TE); Pulse Ox 98% on R/A; Weight 76.2 kg / dem1 167.99 lbs (R); Height 5 ft. 6 in. (167.64 cm) (R); Pain 2/10; 17:14 BP 106 / 51; Pulse 68; Resp 20; Temp 100.1(O); Pulse Ox 97% on R/A; Pain 0/10; ms18 17:16 BP 103 / 58; Pulse 73; Resp 16; Temp 98.3(O); Pulse Ox 96% on R/A; Pain 0/10; ld5 13:04 Body Mass Index 27.12 (76.20 kg, 167.64 cm) dem1 MDM: 13:04 Differential Diagnosis: fall, left hip contusion, low back contusion. Plan: imaging, pc analgesia declined. 13:05 Hip,AP,LAT to include Pelvis Ordered. EDMS 13:05 Spine. Lumbosacral, Complete Ordered. EDMS 14:17 ECG WITH READING ER PHYS+CARDIAG ordered. EDMS 14:18 CBC Ordered. EDMS 14:18 MED Profile Ordered. EDMS 14:18 Liver Profile Ordered. EDMS 14:18 Chest, 1 View Ordered. EDMS 14:18 BED REQUEST+ADM ordered. EDMS 14:56 Test interpretation: EKG. pc 14:56 Data reviewed: old medical records, vital signs, nurses notes, EKG(s), lab test pc results, all radiology studies and available results. Test interpretation: X-RAY - interpreted by Radiologist and personally reviewed, 1 view chest no acute disease, Hip Left Normal Pelvis Fracture Superior ramus Inferior ramus left LS-Spine Normal. 14:57 Physician consultation: Dr. Yuriy Donald regarding patient's condition, and he advises pc that she be treated with weight bearing as tolerated and will consult if requested by the Hospitalist . 14:57 Physician consultation:. pc 15:15 Spine. Lumbosacral, Complete Reviewed. pc 15:15 Hip,AP,LAT to include Pelvis Reviewed. pc 15:36 CBC Reviewed. pc 15:36 MED Profile Reviewed. pc 15:36 Liver Profile Reviewed. pc 15:39 The patient has been re-examined and re-evaluated. The patient's symptoms have mildly pc improved after treatment. Physician consultation: Dr. Elisabeth Inman was contacted at 15:39, regarding admission. Disposition: The historical points, examination findings, and any diagnostic results supporting the provided diagnosis, were discussed with the patient or legal guardian. The need for further work-up and/or treatment in the hospital was explained. 16:05 Admission / Observation Status ordered. EDMS 16:28 Financial registration complete. zo 16:28 [facility] Payment Agreement was scanned into [employer] and attached to record. zo 17:10 REGULAR DIET ordered. EDMS 17:11 PHYSICAL THERAPY EVAL & TREAT ordered. EDMS 08/14 10:48 ECG/EKG was scanned into [employer] and attached to record. EC/16 14:56 Rate is 65 beats/min. Rhythm is regular, Normal Sinus Rhythm. QRS [place] is Normal. [place] pc interval is normal. QRS interval is normal. QT interval is normal. No Q waves. T waves are Normal. No ST changes noted. Clinical impression: Normal Sinus Rhythm. Signatures: Dispatcher [employer] EDID Nilson Chappell MD MD pc Greene, Daniel, RN RN dwg Galina Rodriguez, Reg Reg gb Jorge, Oralia LocoRN RN [id number] The chart was reviewed and I authenticate all verbal orders and agree with the evaluation and treatment provided.Corrections: (The following items were deleted from the chart) 17:12 16:32 CLEAR LIQUIDS DIET ordered. EDID EDID Attachments: 16:28 [facility] [place] zo 08/14 10:48 ECG/EKG Chart Complete MTDD
--- NOTE | 2016-08-15 19:18 | EDDOCDS ---
Physician Documentation [facility] Name: Ciara Ojeda Age: 75 yrs Sex: Female : 1940 Arrival Date: 08/13/2016 Time: 12:41 Bed 7 Private MD: Disposition: 08/13 15:39 Critical Care: Critical care not applicable. pc Disposition: 08/13/16 15:40 Hospitalization ordered by Elisabeth Inman for Inpatient Admission. Preliminary diagnosis are Multiple fractures of pelvis with stable disruption of pelvic ring - left, Unspecified cirrhosis of liver. - Bed requested for 5 [facility]. - Status is Inpatient Admission. ms18 - Condition is Stable. - Problem is new. - Symptoms have improved. HPI: 13:04 This 75 yrs old Female presents to ER via Ambulance with complaints of Fall pc Injury, Hip Pain. 13:04 The history is obtained from the patient. She slipped in her driveway and landed on her pc left hip. he was unable to bear weight on it, so she crawled on her knees to get back into her home. She denies any knee pain, denies other injuries. She has had some low back pain since being transported by EMS. She denies any numbness or weakness of her left LEs. At their worst, the symptoms were a 4 out of 10. In the emergency department, the symptoms are a 2 out of 10. The patient has not experienced similar symptoms in the past. The patient has not recently seen a physician. Historical: - Allergies: SULFA (SULFONAMIDES); Adhesives; macadamia nuts; - Home Meds: 1. spironolactone 25 mg Oral tab 1 tab 2 times per day (Last dose: 08/13/2016 08:00) 2. propranolol 20 mg Oral tab 1 tab 2 times per day (Last dose: 08/13/2016 08:00) 3. fluoxetine 20 mg Oral tab 1 tab once daily (Last dose: 08/13/2016 08:00) 4. valacyclovir 500 mg Oral tab 1 tab once daily (Last dose: 08/13/2016 08:00) 5. Klor-Con M20 20 mEq Oral TbTQ 1 tab once daily (Last dose: 08/13/2016 08:00) 6. furosemide 20 mg Oral tab 1 tab once daily (Last dose: 08/13/2016 08:00) 7. simvastatin 20 mg Oral tab 1 tab nightly (Last dose: 08/12/2016) 8. Citracal Oral Unknown daily 9. multivitamin Oral tab 10. Vitamin D Oral daily 11. Vitamin B-12 Oral daily - PMHx: Osteoporosis; Depression; Cirrhosis; - PSHx: Hip Arthroplasty, Left; Hip Arthroplasty, Right; Hysterectomy; Oophorectomy- bilateral; - The history from nurses notes was reviewed: and I agree with what is documented. - Social history: Smoking status: Patient states was never smoker of tobacco. No barriers to communication noted, The patient speaks fluent Italian. - : The pt / caregiver states he / she is not on anticoagulants. Home medication list is obtained from the patient. - Hospitalizations: : No recent hospitalization is reported. - Exposure Risk Screening:: None identified. - Immunization history:: All immunizations up-to-date. - Family history: Not pertinent. - Social history:: the patient is a non-smoker, the patient does not drink alcohol. ROS: 13:04 All systems are negative except as listed. pc Exam: 13:04 General Appearance: no acute distress, alert. pc 13:04 EENT: normal eye inspection, ears, nose and throat normal, pharynx normal, mucous membranes moist 13:04 Neck: The exam reveals no acute abnormalities. ROM is normal and painless. No nuchal rigidity is noted.. 13:04 Respiratory: no respiratory distress, normal breath sounds. 13:04 CVS: regular pulse rate, regular rhythm, normal S1 and S2, no murmurs, strong peripheral pulses. 13:04 Abdomen: soft, non-tender, no organomegaly, normal bowel sounds. 13:04 Back: Pain is noted in the left low back, over buttocks and left SI joint only. 13:04 Skin: skin color is normal, warm, dry. 13:04 Extremities: grossly normal except: noted in the left hip: tenderness, but with normal ROM, Extremities: grossly normal except: noted in the left hip: tenderness, but with normal ROM. 13:04 Neuro: no motor deficits, no sensory deficits. 13:04 Psych: normal mood. Vital Signs: 13:04 BP 118 / 59; Pulse 63; Resp 18; Temp 98.5(TE); Pulse Ox 98% on R/A; Weight 76.2 kg / dem1 167.99 lbs (R); Height 5 ft. 6 in. (167.64 cm) (R); Pain 2/10; 17:14 BP 106 / 51; Pulse 68; Resp 20; Temp 100.1(O); Pulse Ox 97% on R/A; Pain 0/10; ms18 17:16 BP 103 / 58; Pulse 73; Resp 16; Temp 98.3(O); Pulse Ox 96% on R/A; Pain 0/10; ld5 13:04 Body Mass Index 27.12 (76.20 kg, 167.64 cm) dem1 MDM: 13:04 Differential Diagnosis: fall, left hip contusion, low back contusion. Plan: imaging, pc analgesia declined. 13:05 Hip,AP,LAT to include Pelvis Ordered. EDMS 13:05 Spine. Lumbosacral, Complete Ordered. EDMS 14:17 ECG WITH READING ER PHYS+CARDIAG ordered. EDMS 14:18 CBC Ordered. EDMS 14:18 MED Profile Ordered. EDMS 14:18 Liver Profile Ordered. EDMS 14:18 Chest, 1 View Ordered. EDMS 14:18 BED REQUEST+ADM ordered. EDMS 14:56 Test interpretation: EKG. pc 14:56 Data reviewed: old medical records, vital signs, nurses notes, EKG(s), lab test pc results, all radiology studies and available results. Test interpretation: X-RAY - interpreted by Radiologist and personally reviewed, 1 view chest no acute disease, Hip Left Normal Pelvis Fracture Superior ramus Inferior ramus left LS-Spine Normal. 14:57 Physician consultation: Dr. Yuriy Donald regarding patient's condition, and he advises pc that she be treated with weight bearing as tolerated and will consult if requested by the Hospitalist . 14:57 Physician consultation:. pc 15:15 Spine. Lumbosacral, Complete Reviewed. pc 15:15 Hip,AP,LAT to include Pelvis Reviewed. pc 15:36 CBC Reviewed. pc 15:36 MED Profile Reviewed. pc 15:36 Liver Profile Reviewed. pc 15:39 The patient has been re-examined and re-evaluated. The patient's symptoms have mildly pc improved after treatment. Physician consultation: Dr. Elisabeth Inman was contacted at 15:39, regarding admission. Disposition: The historical points, examination findings, and any diagnostic results supporting the provided diagnosis, were discussed with the patient or legal guardian. The need for further work-up and/or treatment in the hospital was explained. 16:05 Admission / Observation Status ordered. EDMS 16:28 Financial registration complete. zo 16:28 [facility] Payment Agreement was scanned into [employer] and attached to record. zo 17:10 REGULAR DIET ordered. EDMS 17:11 PHYSICAL THERAPY EVAL & TREAT ordered. EDMS 08/14 10:48 ECG/EKG was scanned into [employer] and attached to record. EC/16 14:56 Rate is 65 beats/min. Rhythm is regular, Normal Sinus Rhythm. QRS [place] is Normal. [place] pc interval is normal. QRS interval is normal. QT interval is normal. No Q waves. T waves are Normal. No ST changes noted. Clinical impression: Normal Sinus Rhythm. Signatures: Dispatcher [employer] EDIN Nilson Chappell MD MD pc Greene, Daniel, RN RN dwg Galina Rodriguez, Reg Reg gb Jorge, Oralia LocoRN RN [id number] The chart was reviewed and I authenticate all verbal orders and agree with the evaluation and treatment provided.Corrections: (The following items were deleted from the chart) 17:12 16:32 CLEAR LIQUIDS DIET ordered. EDIN EDIN Attachments: 16:28 [facility] [place] 08/14 10:48 ECG/EKG Chart Complete MTDD
--- NOTE | 2016-08-15 19:18 | EDDOCDS ---
Nurse's Notes [facility] Name: Ciara Ojeda Age: 75 yrs Sex: Female : 1940 Arrival Date: 08/13/2016 Time: 12:41 Bed 7 Private MD: Diagnosis: Multiple fractures of pelvis with stable disruption of pelvic ring-left;Unspecified cirrhosis of liver Presentation: 08/13 12:50 Presenting complaint: Patient states: Pt fell in the driveway and crawled back to the [facility] house due to severe L hip pain. Pt states that she was unable to stand up after her fall. Adult Sepsis Screening: The patient does not have new or worsening altered mentation. Patient's respiratory rate is less than 22. Systolic blood pressure is greater than 100. Patient has a qSOFA score of 0- Negative Sepsis Screen. Suicide/Homicide risk assessment- the patient denies having any suicidal and/or homicidal ideations and does not present with any other emotional, behavioral or mental health complaints. Status: Patient is not a hotel guest service agent or dependent. Transition of care: patient was not received from another setting of care. Care prior to arrival: See EMS report. 12:50 Acuity: STANLEY Level 3 ms18 12:50 Method Of Arrival: Ambulance ca18 Triage Assessment: 13:03 General: Appears in no apparent distress, comfortable, Behavior is appropriate for age, ms18 cooperative, pleasant. Pain: Location: left hip Pain currently is 2 out of 10 on a pain scale. At worst was 10 out of 10 on a pain scale. Aggravated by weight bearing, standing. Neurological: Level of Consciousness is awake, alert, obeys commands, Oriented to person, place, time, Moves all extremities. Speech is normal. Respiratory: Airway is patent Respiratory effort is even, unlabored. Derm: Skin is pink, warm & dry. normal. Musculoskeletal: Range of motion limited in left hip. Historical: - Allergies: SULFA (SULFONAMIDES); Adhesives; macadamia nuts; - Home Meds: 1. spironolactone 25 mg Oral tab 1 tab 2 times per day (Last dose: 08/13/2016 08:00) 2. propranolol 20 mg Oral tab 1 tab 2 times per day (Last dose: 08/13/2016 08:00) 3. fluoxetine 20 mg Oral tab 1 tab once daily (Last dose: 08/13/2016 08:00) 4. valacyclovir 500 mg Oral tab 1 tab once daily (Last dose: 08/13/2016 08:00) 5. Klor-Con M20 20 mEq Oral TbTQ 1 tab once daily (Last dose: 08/13/2016 08:00) 6. furosemide 20 mg Oral tab 1 tab once daily (Last dose: 08/13/2016 08:00) 7. simvastatin 20 mg Oral tab 1 tab nightly (Last dose: 08/12/2016) 8. Citracal Oral Unknown daily 9. multivitamin Oral tab 10. Vitamin D Oral daily 11. Vitamin B-12 Oral daily - PMHx: Osteoporosis; Depression; Cirrhosis; - PSHx: Hip Arthroplasty, Left; Hip Arthroplasty, Right; Hysterectomy; Oophorectomy- bilateral; - The history from nurses notes was reviewed: and I agree with what is documented. - Social history: Smoking status: Patient states was never smoker of tobacco. No barriers to communication noted, The patient speaks fluent [place] Citizen. - : The pt / caregiver states he / she is not on anticoagulants. Home medication list is obtained from the patient. - Hospitalizations: : No recent hospitalization is reported. - Exposure Risk Screening:: None identified. - Immunization history:: All immunizations up-to-date. - Family history: Not pertinent. - Social history:: the patient is a non-smoker, the patient does not drink alcohol. Screenin:08 Screening information is obtained from the patient. Fall risk: At risk due to prior ms18 history of falls. Assistance ADL's: requires no assistance with activities of daily living. Abuse/DV Screen: The patient / caregiver reports he/she is: not in a situation that causes fear, pain or injury. Nutritional screening: No deficits noted. Advance Directives: Currently, there is a health care proxy, Filomena Padilla, Pt's daughter. home support is adequate. Assessment: 13:38 General: Appears in no apparent distress, comfortable, Behavior is appropriate for age, ms18 cooperative, pleasant. Pain: Location: pelvis and left hip Pain currently is 2 out of 10 on a pain scale. Respiratory: Airway is patent Respiratory effort is even, unlabored. GI: Abdomen is non- distended. Derm: Skin is intact, Skin is pink, warm & dry. normal. 14:50 General: Appears in no apparent distress, comfortable, Behavior is appropriate for age, ms18 cooperative, pleasant. Neurological: Level of Consciousness is awake, alert, obeys commands, Oriented to person, place, time. Respiratory: Airway is patent Respiratory effort is even, unlabored. Derm: Skin is pink, warm & dry. normal. 15:54 General: Appears in no apparent distress, comfortable, PT in no acute distress. Will ms18 continue to monitor pt. Respiratory: No deficits noted. Derm: Skin is intact, Skin is pink, warm & dry. normal. 16:38 General: Appears in no apparent distress, comfortable, Behavior is appropriate for age, ms18 cooperative, pleasant. Pain: Denies pain. Neurological: Level of Consciousness is awake, alert, obeys commands, Oriented to person, place, time. Respiratory: No deficits noted. Derm: Skin is pink, warm & dry. normal. 17:14 General: Appears in no apparent distress, comfortable, Behavior is appropriate for age, ms18 cooperative, pleasant. General: Will send SBAR at this time. Pain: Denies pain. Neurological: Level of Consciousness is awake, alert, obeys commands, Oriented to person, place, time. Respiratory: Airway is patent Respiratory effort is even, unlabored. GI: Abdomen is non- distended. Derm: Skin is pink, warm & dry. 18:10 General: Appears in no apparent distress, comfortable, Behavior is appropriate for age, ms18 cooperative, pleasant. Pain: Denies pain. Neurological: Level of Consciousness is awake, alert, obeys commands, Oriented to person, place, time. Respiratory: Airway is patent Respiratory effort is even, unlabored. Derm: Skin is pink, warm & dry. normal. Vital Signs: 13:04 BP 118 / 59; Pulse 63; Resp 18; Temp 98.5(TE); Pulse Ox 98% on R/A; Weight 76.2 kg (R); dem1 Height 5 ft. 6 in. (167.64 cm) (R); Pain 2/10; 17:14 BP 106 / 51; Pulse 68; Resp 20; Temp 100.1(O); Pulse Ox 97% on R/A; Pain 0/10; ms18 17:16 BP 103 / 58; Pulse 73; Resp 16; Temp 98.3(O); Pulse Ox 96% on R/A; Pain 0/10; ld5 13:04 Body Mass Index 27.12 (76.20 kg, 167.64 cm) dem1 Vitals: 13:04 Log In Time N/A - ambulance arrival. [facility] ED Course: 12:42 Patient visited by Jeannette Jasmine, Airplane Pilot Photogrammetry. deg 12:42 Oralia Sharp RN is Primary Nurse. deg 12:42 Patient moved to Waiting deg 12:42 Patient moved to 7 deg 12:46 Nilson Chappell MD is Attending Physician. pc 12:50 Patient visited by Oralia Sharp RN. ms18 12:52 Triage Initiated ms18 13:03 Patient visited by Nilson Chappell MD. pc 13:04 Cleaned of incontinence. dem1 13:05 Patient visited by Rufina Dhillon. dem1 13:08 The patient / caregiver is instructed regarding the plan of care and ED course. Patient ms18 has correct armband on for positive identification. Placed in gown. Bed in low position. Call light in reach. Side rails up X2. Property :Personal belongings accompany Pt. 14:07 Patient visited by Nilson Chappell MD. pc 14:08 Hip,AP,LAT to include Pelvis Returned. EDMS 14:08 Spine. Lumbosacral, Complete Returned. EDMS 14:51 Patient visited by Oralia Sharp RN. ms18 14:53 Patient visited by Carly Galeana. nb2 14:53 EKG done. (by ED staff). Reviewed by Nilson Chappell MD. nb2 15:05 Patient visited by Oralia Sharp RN. ms18 15:05 Liver Profile Sent. ms18 15:05 MED Profile Sent. ms18 15:05 CBC Sent. ms18 15:06 Inserted saline lock: 20 gauge in right antecubital area and blood collected. The ms18 patient tolerated the procedure well. 15:40 Elisabeth Inman is Hospitalizing Provider. pc 15:41 Chest, 1 View Returned. EDMS 16:28 [facility] Payment Agreement was scanned into [employer] and attached to record. zo 17:14 No procedures done that require assistance. ms18 17:18 Patient visited by Oralia Sharp RN. ms18 08/14 10:48 ECG/EKG was scanned into [employer] and attached to record. gb Order Results: Lab Order: CBC; SPEC'M 08/13/16 14:56 Test: WHITE BLOOD COUNT; Value: 8.4; Range: 4.0-10.0; Units: K/mm3; Status: F Test: RED BLOOD COUNT; Value: 4.21; Range: 4.00-5.40; Units: M/mm3; Status: F Test: HEMOGLOBIN; Value: 15.1; Range: 12.0-16.0; Units: g/dl; Status: F Test: HEMATOCRIT; Value: 43.2; Range: 36.0-47.0; Units: %; Status: F Test: MEAN CORPUSCULAR VOLUME; Value: 102.4; Range: 80.0-96.0; Abnormal: Above high normal; Units: fl; Status: F Test: MEAN CORPUSCULAR HEMOGLOBIN; Value: 35.7; Range: 27.0-33.0; Abnormal: Above high normal; Units: pg; Status: F Test: MEAN CORPUSCULAR HGB CONC; Value: 34.9; Range: 32.0-36.5; Units: g/dl; Status: F Test: RED CELL DISTRIBUTION WIDTH; Value: 12.9; Range: 11.5-14.5; Units: %; Status: F Test: PLATELET COUNT, AUTOMATED; Value: 125; Range: 150-450; Abnormal: Below low normal; Units: k/mm3; Status: F Lab Order: MED Profile; [facility] 08/13/16 14:56 Test: GLUCOSE, FASTING; Value: 108; Range: 83-110; Units: MG/DL; Status: F Test: BLOOD UREA NITROGEN; Value: 16; Range: 7-18; Units: MG/DL; Status: F Test: CREATININE FOR GFR; Value: 1.04; Range: 0.55-1.02; Abnormal: Above high normal; Units: MG/DL; Status: F Test: GLOMERULAR FILTRATION RATE; Value: 54.8; Range: >39; Status: F Test: SODIUM LEVEL; Value: 138; Range: 136-145; Units: MEQ/L; Status: F Test: POTASSIUM SERUM; Value: 4.2; Range: 3.5-5.1; Units: MEQ/L; Status: F Test: CHLORIDE LEVEL; Value: 102; Range: 98-107; Units: MEQ/L; Status: F Test: CARBON DIOXIDE LEVEL; Value: 27; Range: 21-32; Units: MEQ/L; Status: F Test: ANION GAP; Value: 9; Range: 8-16; Units: MEQ/L; Status: F Test: CALCIUM LEVEL; Value: 9.3; Range: 8.8-10.2; Units: MG/DL; Status: F Test Note: ; Units are mL/min/1.73 m2 Chronic Kidney Disease Staging per NKF: Stage I & II GFR >=60 Normal to Mildly Decreased Stage III GFR 30-59 Moderately Decreased Stage IV GFR 15-29 Severely Decreased Stage V GFR <15 Very Little GFR Left ESRD GFR <15 on [facility]PER Lab Order: Liver Profile; [facility] 08/13/16 14:56 Test: AST/SGOT; Value: 62; Range: 15-37; Abnormal: Above high normal; Units: U/L; Status: F Test: ALT/SGPT; Value: 37; Range: 12-78; Units: U/L; Status: F Test: ALKALINE PHOSPHATASE; Value: 114; Range: 45-117; Units: U/L; Status: F Test: BILIRUBIN,TOTAL; Value: 1.3; Range: 0.2-1.0; Abnormal: Above high normal; Units: MG/DL; Status: F Test: BILIRUBIN,DIRECT; Value: 0.3; Range: 0.0-0.2; Abnormal: Above high normal; Units: MG/DL; Status: F Test: TOTAL PROTEIN; Value: 6.5; Range: 6.4-8.2; Units: GM/DL; Status: F Test: ALBUMIN; Value: 3.2; Range: 3.2-5.2; Units: GM/DL; Status: F Test: ALBUMIN/GLOBULIN RATIO; Value: 0.97; Range: 1.00-1.93; Abnormal: Below low normal; Status: F Radiology Order: Hip,AP,LAT to include Pelvis Test: Hip,AP,LAT to include Pelvis REASON FOR EXAMINATION: Trauma; AP pelvis one-view and left hip two views:; ; Comparisons 07/25/2014.; ; AP pelvis:; ; There are bilateral total hip arthroplasties,. There is question of a; nondisplaced fracture of the left ischium. There is a fracture at the superior; left pubic ramus at the left acetabulum.; ; There is no fracture or dislocation of either arthroplasty.; ; There are phleboliths inferiorly in the pelvis, unchanged.; ; Left hip two views AP and frog-leg projections:; ; There is a total hip arthroplasty.; ; Nondisplaced fracture of the left ischium and nondisplaced fracture of the; superior pubic ramus at the acetabulum are again noted.; ; There is no fracture or dislocation of the arthroplasty or proximal femur.; ; ; Signed by; Tutu Waggoner MD 08/13/2016 01:48 P; Radiology Order: Spine. Lumbosacral, Complete Test: Spine. Lumbosacral, Complete REASON FOR EXAMINATION: Trauma; Clinical: Trauma.; ; Technique: AP, lateral, bilateral oblique, and coned-down views of the; lumbosacral spine.; ; Findings:; Advanced multilevel degenerative changes include chronic levoconvex scoliosis,; endplate sclerosis, anterior spurring, disc space narrowing and hypertrophic; facet changes. No acute fracture / compression injury or subluxation.; ; Impression:; Advanced multilevel degenerative changes. No acute fracture or subluxation.; ; ; Signed by; Henry Michaels MD 08/13/2016 01:54 P; Radiology Order: Chest, 1 View Test: Chest, 1 View REASON FOR EXAMINATION: for admission; Clinical: Pre admission. Pelvic fracture.; ; Comparison: 10/09/2014 .; ; Findings:; The mediastinum and cardiac silhouette are stable and within normal limits for; portable technique. The lung merlos are clear without acute consolidation,; effusion, or pneumothorax. Skeletal structures are intact.; ; Impression:; Normal portable chest x-ray; ; ; Signed by; Henry Michaels MD 08/13/2016 02:48 P; Outcome: 08/13 15:40 Decision to Hospitalize by Provider. pc 17:19 Discharge Assessment: Patient awake and alert. obeys commands, Oriented to person, ms18 place and time. Patient verbalized understanding of disposition instructions. patient administered narcotics - no. The following High Risk Discharge criteria are identified: None. Admitted to Med/Surg accompanied by tech, via stretcher, with chart. Condition: good Condition: stable. No special radiology studies were completed. 18:17 Patient left the ED. ms18 Signatures: Dispatcher [employer] EDMS Nilson Chappell MD MD pc Jeannette Jasmine, Airplane Pilot Photogrammetry Unit deg Galina Rodriguez, Reg Reg Johan Clark Laura,RN RN ld5 Rufina Dhillon1 Oralia Sharp RN RN ms18 Carly Galeana2 Chart Complete MTDD
--- NOTE | 2016-08-16 07:00 | CR ---
DATE OF CONSULTATION: 08/15/2016 CHIEF COMPLAINT: Pelvic fracture. HISTORY OF PRESENT ILLNESS: This is a 75-year-old female who slipped on the ice on and injured her pelvis. She did not have a loss of consciousness. She was brought to the emergency room (ER) for further evaluation. She has bilateral hip replacements. Imaging studies reflected no fracture around the hip replacement; however, she did have superior and inferior pubic ramus fractures on the left side on AP of the pelvis. She complains not that her pelvic fracture is painful, but that she has itching in the lower extremities from the bedding in the hospital. She is convinced that the bedding in the hospital is causing some irritation. MEDICAL HISTORY: Includes osteoporosis, depression, fatty liver, diabetes 2, and hypercholesterolemia. SURGICAL HISTORY: Includes bilateral hip replacements, most recently left in 2014, and hysterectomy in 1979. MEDICATIONS (Include): - spironolactone - propranolol - fluoxetine - valacyclovir - Klor-Con - furosemide - simvastatin - Citracal - multivitamin - vitamin D - vitamin B12 ALLERGIES: - SULFA - ADHESIVE TAPE - MACADAMIA NUTS SOCIAL HISTORY: Lives alone with a cat. Has a daughter who lives in [place]. FAMILY HISTORY: Not contributory. REVIEW OF SYSTEMS: She is not complaining of headache, shortness of breath, chest pain, or abdominal pain. She has pelvic pain that is controlled. Complaining of burning pain in the feet. Not complaining of back pain. CLINICAL EXAMINATION: Alert and cooperative. Mood and affect appropriate. Appears to be her stated vintage. She appears to be comfortable. The extremities are symmetrical. The leg lengths are equal. The lower extremities are sensate. She is able to wiggle the toes. Motor is intact. There does not seem to be any rash on the lower extremities consistent with contact dermatitis. IMPRESSION: 1. Superior and inferior pubic ramus fracture. RECOMMENDATIONS: Sparing use of narcotics. Home safety evaluation. Once cleared physical therapy (PT), the patient should go home. I talked to the patient about being discharged because apparently she has done okay with PT. She is not comfortable being discharged because there is no one to stay with her at home. I encouraged the patient to try to make arrangements for somebody to help her at home and further clarification of the safety evaluation with PT. Followup with orthopedics could be in 5-15 days.
--- NOTE | 2016-08-20 00:44 | DS.PDOC ---
Discharge Summary General Date of Admission Aug 13, 2016 at 16:02 Date of Discharge Aug 15, 2016 at 14:30 Primary Care Physician: Jr Escalera Collins Attending Physician: KATHLEEN HOFFMAN DO Specialist/Consultants Involve: Twan Oliva MD Discharge Summary PROCEDURES PERFORMED DURING STAY: Chest X-ray, Hip X-ray and Lumbar spine X-Ray COMPLICATIONS/CHIEF COMPLAINT: Pelvic Fx DISCHARGE DIAGNOSES: Superior and inferior pubic ramus fracture. Osteoporosis. Depression. Fatty liver. History of diet-controlled type 2 diabetes mellitus. Hypercholesterolemia. Brief History: This is a 75-year-old female with a past medical history significant for osteoporosis, depression, fatty liver, history of type 2 diabetes mellitus, which is diet controlled, who presented today to the emergency department with a history of acute fall on her driveway. She reports slipping on her right foot and impacting on her left hip and left arm. She denies any loss of consciousness during or after the episode. She was able to crawl from her position into her home. She eventually settled down into a chair. She attempted, to stand up from the chair but was unable to. After two attempts, she decided to call 911. She was brought to the hospital by emergency medical services (EMS). In the ED, she was having acute pain whenever she moved her left hip. She has full range of motion in the rest of her extremities including her right leg. At the time, the patient denied any fevers, shortness of breath, dyspnea, chest pain. She denies any numbness or tingling in the extremities. HOSPITAL COURSE: Patient was admitted for acute pelvic fracture. Was started on pain medications which the patient took sparingly. Patient was evaluated by PT/ OT. Orthopedic surgery was consulted, Dr. Oliva, and he saw her on 08/13/16. They recommended pain control and also discharge when PT had cleared her. During the admission, she was started on IVF because of elevated Cr. On the day of discharge, her Cr had not returned to baseline despite IVF. Pt was advised to stay another day so that she could be further stabilized. However, she was insistent that she would leave today because her daughter was coming to stay with her for the night. She was agreeable to rechecking her blood work on Wednesday08/17/2016. Patient will have close follow up with PCP and will also follow up with orthopedic after discharge. At the time of discharge, she was cleared by PT, and had no complaints of pain. DISCHARGE MEDICATIONS: Please see below. ALLERGIES: Please see below. PHYSICAL EXAMINATION ON DISCHARGE: VITAL SIGNS: Please see below. GENERAL: The patient is lying comfortably on the hospital bed. She does not appear to be in any acute distress. She is calm and cooperative. HEENT: Head is normocephalic, atraumatic. Her extraocular movements are intact bilaterally. Her pupils are equally round and reactive to light and accommodation. Her mucous membranes are moist. CARDIAC: Regular rate and rhythm, no murmurs appreciated. PULMONARY: Clear to auscultation bilaterally, no wheezes, rales, rhonchi. ABDOMEN: Soft, nontender, nondistended. Normoactive bowel sounds are heard throughout. MUSCULOSKELETAL: Minimal tenderness to left to palpation. Good range of motion throughout all extremities She is able to move her toes in her left and right lower extremities. EXTREMITIES: No edema in the lower extremities bilaterally. +2 pulses, pedal bilaterally, and radial. NEUROLOGIC: Cranial nerves II-XII are grossly intact. Has full sensation throughout, no sensory loss. LABORATORY DATA: Please see below. IMAGING: A chest x-ray was completed on 08/13/2016. Showed no acute disease. A hip x-ray was completed on 08/13/2016 which showed bilateral hip arthroplasties. Nondisplaced fracture of the left a she him and nondisplaced fracture of the superior pubic ramus. A lumbosacral spine x-ray was completed on 08/13/2016 which showed advanced multi level degenerative changes with no acute fracture or subluxation. VTE Prophylaxis ordered?: Yes DISCHARGE CONDITION: Stable. DISPOSITION: Discharged to home ACTIVITY: As tolerated DIET: As tolerated ITEMS TO FOLLOWUP ON OUTPATIENT: 1. BMP to be completed on 08/17/2016 DISCHARGE PLAN AND INSTRUCTIONS: Patient will follow-up with her PCP and review her lab work. Patient will also follow-up with orthopedic surgery. TIME SPENT ON DISCHARGE: Greater than 30 minutes. Vital Signs/I&Os Vital Signs Date Time Temp Pulse Resp B/P Pulse Ox O2 Delivery O2 Flow Rate FiO2 08/15/16 08:48 73 119/63 08/15/16 06:00 98.3 20 97 Room Air Microbiology Microbiology 2/17/17 Urine Culture - Final, Complete Enterococcus Faecalis Medications Scheduled (Citracal Plus) 1 Tab Tab 1 TAB PO DAILY Cyanocobalamin (Vitamin B-12) 1,000 Mcg Tab 1,000 MCG PO DAILY Fluoxetine Hcl (Fluoxetine) 20 Mg Cap 20 MG PO DAILY Furosemide (Furosemide) 20 Mg Tab 20 MG PO DAILY Multivitamins *[facility] STOCKED* (Thera M Plus *[facility] STOCKED*) 1 Tab Tab 1 TAB PO DAILY Potassium Chloride (Klor-Con M20) 20 Meq Tabcr 20 MEQ PO DAILY Propranolol HCl (Propranolol HCl) 20 Mg Tab 20 MG PO BID Simvastatin (Simvastatin) 20 Mg Tab 20 MG PO QHS Spironolactone (Spironolactone) 25 Mg Tab 25 MG PO BID Valacyclovir HCl (Valacyclovir HCl) 500 Mg Tab 500 MG PO DAILY Vitamin D (Vitamin D3) 1,000 Units Tab 1,000 UNITS PO DAILY Allergies Coded Allergies: Eggs or Egg-derived Products (Verified Allergy, Unknown, 10/03/12) Lactose (Verified Allergy, Unknown, INTOLERANCE, 10/03/12) Latex (Verified Allergy, Unknown, SENSITIVE TO INSERTION ITEMS, 10/03/12) Macadamia Nut Oil (Unverified Allergy, Unknown, VOMITING,DIARRHEA, 08/13/16 ) Sulfa Drugs (Verified Allergy, Unknown, 10/03/12) Sulfa Drugs Cross Reactors (Verified Allergy, Unknown, 10/03/12) TAPE (Verified Allergy, Unknown, 07/24/14) GME ATTESTATION My preceptor for this patient encounter was physically present in the building during the encounter and was fully available. As needed, all aspects of the patient interview, examination, medical decision making process, and medical care plan development were reviewed and approved by the preceptor. Preceptor is aware and concurs with the plan as stated in the body of this note and will attest to such by his/her cosignature. GERSON CHAPMAN DO Aug 20, 2016 00:43
== END 2016-08-15 14:30 | disposition home health service (06) ==
LOC: M ED 12:41 → M ED INP 16:02 → M MS5PR 18:10
PROVIDERS: ADMIT Internal Medicine; ATTEND Internal Medicine
DX: S32.810A Multiple fractures of pelvis with stable disruption of pelvic ring, initial encounter for closed fracture (principal); W01.0XXA Fall on same level from slipping, tripping and stumbling without subsequent striking against object, initial encounter; Y92.014 Private driveway to single-family (private) house as the place of occurrence of the external cause; Y93.89 Activity, other specified; Y99.8 Other external cause status; K74.60 Unspecified cirrhosis of liver; N17.9 Acute kidney failure, unspecified; M16.12 Unilateral primary osteoarthritis, left hip; E11.9 Type 2 diabetes mellitus without complications; M81.0 Age-related osteoporosis without current pathological fracture; F32.9 Major depressive disorder, single episode, unspecified; E78.00 Pure hypercholesterolemia, unspecified; Z79.899 Other long term (current) drug therapy; Z88.2 Allergy status to sulfonamides; Z91.018 Allergy to other foods; Z91.048 Other nonmedicinal substance allergy status; Z96.643 Presence of artificial hip joint, bilateral
CPT/HCPCS: 36415; 71010; 72110; 73502; 80048; 80076; 81001; 85027; 87088; 87186; 93005; 96372; 97116; 97162; 99285; G0378

== ENCOUNTER → 2016-08-17 | Outpatient (REF) | payer MEDICARE ==
[~2016-08-17] MED LIST changes: +CITRTAB15 PO; +FURO20TA2 PO; +POTA20TA PO; +PROP1TAB29 PO; +SPIR25TA2 PO; +VITA10002 PO; +VITAD1000T PO; +VITMTA PO
[2016-08-17 15:18] LABS: ALBUMIN 2.9 GM/DL (3.2-5.2); ALKALINE PHOSPHATASE 101 U/L (45-117); ALT/SGPT 32 U/L (12-78); ANION GAP 7 MEQ/L (8-16); AST/SGOT 55 U/L (15-37); BILIRUBIN,TOTAL 1.4 MG/DL (0.2-1.0); BLOOD UREA NITROGEN 20 MG/DL (7-18); CALCIUM LEVEL 8.4 MG/DL (8.8-10.2); CARBON DIOXIDE LEVEL 27 MEQ/L (21-32); CHLORIDE LEVEL 106 MEQ/L (98-107); CREATININE FOR GFR 0.84 MG/DL (0.55-1.02); GLOMERULAR FILTRATION RATE > 60.0 (>39); GLUCOSE, FASTING 70 MG/DL (83-110); POTASSIUM SERUM 4.6 MEQ/L (3.5-5.1); SODIUM LEVEL 140 MEQ/L (136-145); TOTAL PROTEIN 5.8 GM/DL (6.4-8.2)
== END ==
LOC: M LAB REF 14:33 → M SHH 14:33
PROVIDERS: ATTEND Internal Medicine
DX: S37.099A Other injury of unspecified kidney, initial encounter (principal); X58.XXXA Exposure to other specified factors, initial encounter; Y92.89 Other specified places as the place of occurrence of the external cause; Y93.89 Activity, other specified; Y99.8 Other external cause status

== ENCOUNTER → 2016-10-19 | Outpatient (CLI) | payer MEDICARE ==
--- NOTE | 2016-10-19 12:14 | REP ---
DIAGNOSTIC MAMMOGRAM RIGHT BREAST: Breast cancer paternal grandmother. MLO and CC views of the right breast are performed as well as ML views. Magnification views are performed. Comparison made with prior studies most recently 04/13/2016. Once again, there are suspicious clustered microcalcifications in the upper inner right breast as well as another cluster of microcalcifications in the upper outer quadrant of the right breast. Once again, biopsy would be recommended via needle localization and excisional biopsy. Stereotactic biopsy was attempted but compressed breast thickness was too thin to allow adequate needle throw. No new architectural distortion or mass is seen. IMPRESSION: ACR IV suspicious. Once again, there are two clusters of microcalcifications in the right breast. Recommend needle localization and excisional biopsy. BI-RADS/ACR category 4 mammogram. Suspicious abnormality - biopsy should be considered. Usually requires biopsy. This mammogram was interpreted with the aid of an FDA-approved computer-aided detection system. A. Negative x-ray reports should not delay biopsy if a dominant or clinically suspicious mass is present. B. Four to eight percent of cancers are not identified by x-ray. C. Adenosis and dense breasts may obscure an underlying neoplasm. The patient states she had a clinical breast exam in 06/2016. The patient letter being requested is M4. Signed by Tutu Metz MD 10/19/2016 08:08 P
== END ==
LOC: M RAD 10:41
PROVIDERS: ATTEND Surgery
DX: R92.0 Mammographic microcalcification found on diagnostic imaging of breast (principal)

== ENCOUNTER → 2016-11-19 | Outpatient (REF) | payer MEDICARE | LOC: M LAB REF 11:44 | PROVIDERS: ATTEND Internal Medicine | DX: R94.5 Abnormal results of liver function studies (principal) ==

== ENCOUNTER → 2017-07-14 | Outpatient (CLI) | payer MEDICARE | LOC: M RAD 10:18 | DX: Z12.39 Encounter for other screening for malignant neoplasm of breast (principal); R92.0 Mammographic microcalcification found on diagnostic imaging of breast (principal) | CPT/HCPCS: 77066 ==

== ENCOUNTER → 2017-08-23 | Outpatient (REF) | payer MEDICARE ==
[2017-08-24 09:58] LABS: ALPHA FETOPROTEIN TUMOR QUANT 10.4 NG/ML (<8.1)
== END ==
LOC: M LAB REF 18:57
DX: K74.69 Other cirrhosis of liver (principal)
CPT/HCPCS: 82105

== ENCOUNTER → 2018-02-23 | Outpatient (REF) | payer MEDICARE ==
[2018-02-23 14:21] LABS: ALPHA FETOPROTEIN TUMOR QUANT 6.5 NG/ML (<8.1)
== END ==
LOC: M LAB REF 13:10
DX: K74.69 Other cirrhosis of liver (principal)
CPT/HCPCS: 82105

== ENCOUNTER → 2018-04-04 | Outpatient (CLI) | payer MEDICARE | LOC: M RAD 10:14 | DX: R92.0 Mammographic microcalcification found on diagnostic imaging of breast (principal) | CPT/HCPCS: 77066 ==

== ENCOUNTER 2018-08-25 11:32 | Inpatient (IN) | payer MEDICARE ==
[~2018-08-25] VITALS: Ht 167.6 cm; Wt 77.3 kg
[~2018-08-25 11:32] MED LIST changes: -COUM2.5T11 PO; +COUM2.5T17 PO; +KLOR20TA42 PO; -METF500T PO; +METF500T13 PO; +PERC5TAB12 PO; -PERC5TAB6 PO; -POTA20TA PO; -PROP1TAB29 PO; +PROP20TA72 PO; +SPIR-10 PO; -SPIR25TA2 PO; -VALA500T PO; +VALA500T5 PO
--- NOTE | 2018-08-25 12:53 | REP ---
Clinical: Trauma. Fall. Technique: Frontal view of the pelvis with neutral and frog lateral views of the right hip. Findings: Evidence for prior bilateral hip replacement. Pelvis is intact without fracture. Right hip demonstrates a subtle linear lucency through the proximal metaphysis which may represent an old fracture site and less likely an acute injury. Impression: Bilateral hip replacement. No definite fracture. However, subtle injury involving the right hip proximal metaphysis requires correlation. Electronically Signed by Henry Michaels MD 08/25/2018 12:15 P
--- NOTE | 2018-08-25 14:26 | REP ---
Clinical: Possible acute fracture. Technique: Axial noncontrast images of the right hip with coronal and sagittal re-formations. Findings: Axial and coronal re-formations best demonstrate an oblique linear lucency through the proximal femoral metadiaphyseal cortex most suggestive of an acute fracture (see coronal image [id number]). Right hip prosthesis appears intact. No no other fracture dislocation is appreciated. Impression: Findings suggest an acute oblique fracture of the proximal femoral metadiaphysis. Electronically Signed by Henry Michaels MD 08/25/2018 02:17 P
[2018-08-25 15:04] LABS: BASO # 0.1 10^3/uL (0.0-0.2); BASO % 0.7 % (0.0-1.0); EOS % 0.5 % (0.0-3.0); HEMATOCRIT 43.3 % (36.0-47.0); HEMOGLOBIN 14.9 g/dl (12.0-15.5); LYMPH # 1.5 10^3/uL (1.5-4.5); LYMPH % 16.6 % (24.0-44.0); MEAN CORPUSCULAR HEMOGLOBIN 35.4 pg (27.0-33.0); MEAN CORPUSCULAR HGB CONC 34.4 g/dl (32.0-36.5); MEAN CORPUSCULAR VOLUME 102.9 fl (80.0-96.0); MONO % 11.5 % (0.0-5.0); NEUTROPHILS # 6.2 10^3/uL (1.8-7.7); NEUTROPHILS % 69.8 % (36.0-66.0); PLATELET COUNT, AUTOMATED 158 10^3/uL (150-450); RED BLOOD COUNT 4.21 10^6/uL (4.00-5.40); WHITE BLOOD COUNT 8.8 10^3/uL (4.0-10.0)
[2018-08-25] MEDS ORDERED: FURO40TA2 PO (15:14)
[2018-08-25 15:21] LABS: BLOOD UREA NITROGEN 12 MG/DL (7-18); CALCIUM LEVEL 8.7 MG/DL (8.8-10.2); CARBON DIOXIDE LEVEL 28 MEQ/L (21-32); CHLORIDE LEVEL 105 MEQ/L (98-107); CREATININE FOR GFR 0.95 MG/DL (0.55-1.30); GLOMERULAR FILTRATION RATE > 60.0 (>39); GLUCOSE, FASTING 97 MG/DL (70-100); POTASSIUM SERUM 3.4 MEQ/L (3.5-5.1); SODIUM LEVEL 143 MEQ/L (136-145)
--- NOTE | 2018-08-25 16:28 | CR ---
DATE OF CONSULTATION: 08/25/2018 REASON FOR CONSULTATION: Right proximal periprosthetic femur fracture. HISTORY OF PRESENT ILLNESS: This is a 77-year-old female status post bilateral total hip arthroplasties. Right was done in 2006 by myself. She has also had the left one done in 2014. Otherwise she presents after a fall trying to step over a snow bank on [place] sidewalk [place] the city and had a slow, low-energy fall onto her buttock area, she describes. Had pain and soreness about her right hip and groin area and was unable to ambulate because of that, and an ambulance actually had to come and transfer her here to [facility] for evaluation and treatment. She has no pain at rest. She is actually very comfortable now, but when they tried to get her from the wheelchair onto the exam table for x-rays, she had quite a bit of pain and soreness localizable to the right groin area, but now she is very comfortable. No complaints of numbness or tingling otherwise. No other injury. No loss of consciousness. No neck pain. No upper extremity trauma or injury. PAST MEDICAL HISTORY: Significant for: 1. Depression. 2. Hypercholesterolemia. 3. Hypertension. 4. History of fatty liver. MEDICATION LIST: At home includes Citracal, vitamin B12, fluoxetine, furosemide, multivitamins, potassium, propranolol, simvastatin, spironolactone, valacyclovir, vitamin D. ALLERGIES TO MEDICATIONS: She does list an allergy to SULFA and the other allergy is to the thromboembolic deterrent (ALEXI) hose stockings as well as macadamia nuts. PAST SURGICAL HISTORY: 1. Right hip 2006. 2. Left hip was 2014. 3. She has also had a total abdominal hysterectomy with bilateral oophorectomies in 1979. Does not smoke. Does not drink alcohol excessively. She is . She just moved into the [facility]. She has a step-daughter who lives in [place]. She does live at home alone. REVIEW OF SYSTEMS: Otherwise per the history of present illness. She otherwise has been well, although she does complain of some weakness in her legs and giving away intermittently occasionally. FAMILY HISTORY: Otherwise Noncontributory to this problem. On examination, she is an alert, pleasant female, not in any significant distress. Does not complain of any soreness at present. Her blood pressure is 126/60, temperature 97.5, pulse 67, respirations were 16, oxygen saturation on room air 97%. HEENT exam is benign. Upper extremity examination and head and neck were showing no tenderness of the neck. No tenderness of her scalp. She could elevate her arms up over head without obvious deformity, pain, or soreness. Lower extremity examination: Her leg lengths were equal. Her feet were somewhat cool, but she had dopplerable pulses at the dorsalis pedis and posterior tibialis. She had normal extensor hallucis longus (EHL), flexor hallucis longus (FHL), motor strength. Normal ankle dorsiflexion and plantarflexion strength. Log rolling was nontender actually to the right hip, as it was on the left side. There was no swelling of the hip on the right side. X-rays of the right hip and CT scan of the right hip were performed in the emergency room, which I reviewed, showing what appears to be a nondisplaced proximal periprosthetic femur fracture. I think this qualifies as [place] A, which is a stable pattern. It is slightly visible only by CT scan. I talked to her about this. My impression is that this is, indeed, likely acute fracture that is nondisplaced. Seems to be a stable injury. I talked to her about the options of open reduction and cabling of the fracture or try to treat this nonoperatively with close followup with therapy and toe-touch weightbearing in hopes of avoiding an operative intervention. After some discussion about this, she is in agreement with this nonoperative attempt of care, and so she is going to be admitted by the hospitalist service, and we will have therapy help her with no more than toe-touch weightbearing and frequent radiographic x-rays to follow this and make sure there is no displacement. If that does happen, I would recommend we treat this with open reduction, internal fixation. She is happy with that plan.
[2018-08-25] MEDS ORDERED: MORPHINE 4 MG/ML 1ML VIAL/SYRINGE (J2270) IV PRN (18:15)
[2018-08-25] MEDS: FUROSEMIDE 40 MG TAB PO SCH (18:29)
[2018-08-25] MEDS: SPIRONOLACTONE 25 MG TAB PO SCH (18:29)
--- NOTE | 2018-08-25 18:36 | HPE ---
DATE OF ADMISSION: 08/25/2018 This is a 77-year-old female with a past medical history of hyperlipidemia, diabetes, diet controlled, history of fatty liver, who presents to the emergency room after having a fall at the [facility]. She slipped on some ice and landed on her right hip. She came to the emergency room for evaluation. In the emergency room, she had an x-ray done that showed a right hip fracture. She was given IV morphine for pain and Dr. Art was consulted, who is the orthopedic surgeon, and recommendations were to continue pain management and attempt to have this fracture heal without any operative means based on how she does with physical therapy (PT). At this time, the patient is pain free and she offers no associated chest pain, shortness of breath, abdominal pain, nausea, vomiting, vertigo, headache. PAST MEDICAL HISTORY: Again, past medical history of: 1. Osteoporosis. 2. Depression. 3. Fatty liver. 4. Diabetes type 2, diet controlled. 5. Hyperlipidemia. PAST SURGICAL HISTORY: 1. Right hip arthroplasty in 2006. 2. Left hip arthroplasty in 2012. 3. History of bilateral oophorectomy in 1979. ALLERGIES: She has drug allergies to SULFA. FAMILY HISTORY: Noncontributory. SOCIAL HISTORY: The patient denies tobacco, alcohol, or illicit drugs. MEDICATIONS: She takes at home: - Citracal one tablet orally daily - fluoxetine 20 mg by mouth daily - Lasix 40 mg by mouth twice a day - multivitamin one tablet by mouth daily - potassium chloride 20 mEq by mouth daily - propranolol 20 mg by mouth daily - simvastatin 20 mg by mouth at bedtime - spironolactone 25 mg by mouth twice a day - valacyclovir 500 mg by mouth daily REVIEW OF SYSTEMS: Negative for all ten major systems except what is mentioned in the history of present illness. PHYSICAL EXAMINATION: VITAL SIGNS: Blood pressure 126/60, heart rate 67 and regular, respiratory rate 16, temperature 97.5, oxygen saturation 97% on room air. Head is atraumatic, normocephalic. Neck is supple with no jugular venous distention (JVD). Lungs clear to auscultation. S1, S2 audible. No murmurs appreciated. Abdomen is soft. Positive bowel sounds. No pedal edema. Skin is intact. Neurologic examination, the patient is awake, alert and oriented times three. LABORATORIES: WBC 8.8, hemoglobin 14.9, hematocrit 43.3, platelets are 158,000. Sodium 143, potassium 3.4, chloride 105, CO2 of 28, anion gap 10, BUN 12, creatinine 0.95, glucose 97. IMPRESSION: 1. Right hip fracture. 2. Hypokalemia. PLAN: The patient is to be admitted to the medical/surgical floor. We will have physical therapy (PT) see her in the morning and continue IV morphine as needed for pain. I will continue all preadmission medications. We will replete her potassium, it is only 3.4 and she is due for a potassium in the evening, we will see how her basic metabolic panel (BMP) looks in the morning.
[2018-08-25 22:00] VITALS: BP 120/56
[2018-08-25] MEDS: SIMVASTATIN 20 MG TAB PO SCH (23:33)
[2018-08-26 06:00] VITALS: BP 120/71
[2018-08-26] MEDS ORDERED: traMADol 50 MG TAB PO PRN (06:15)
[2018-08-26] MEDS: ACETAMINOPHEN 500 MG TAB PO SCH ×3 (06:23→21:20)
[2018-08-26 07:17] LABS: CALCIUM LEVEL 8.2 MG/DL (8.8-10.2); CREATININE FOR GFR 0.96 MG/DL (0.55-1.30); GLOMERULAR FILTRATION RATE 59.8 (>39); POTASSIUM SERUM 4.2 MEQ/L (3.5-5.1)
[2018-08-26] MEDS: POTASSIUM CHLORIDE 10 MEQ SR TABLET PO SCH (08:33)
[2018-08-26] MEDS: SPIRONOLACTONE 25 MG TAB PO SCH ×2 (08:33→17:49)
[2018-08-26] MEDS: valACYclovir HCL 500 MG TAB PO SCH (08:33)
[2018-08-26] MEDS: FUROSEMIDE 40 MG TAB PO SCH ×2 (08:33→17:49)
[2018-08-26] MEDS: MULTIVITAMINS/MINERALS THERAP 1 TAB PO SCH (08:33)
[2018-08-26] MEDS: FLUoxetine 20 MG CAP PO SCH (08:33)
[2018-08-26] MEDS: PROPRANOLOL 20 MG TAB PO SCH (08:35)
[2018-08-26] MEDS: SENOKOT S TAB PO SCH ×3 (08:35→21:20)
[2018-08-26] MEDS: MIRALAX *UNIT DOSE* 17GM PACKET PO SCH (08:35)
[2018-08-26] MEDS: MOM 30ML SUSPENSION UDC PO SCH (08:35)
[2018-08-26] MEDS: ENOXAPARIN 40 MG/0.4 ML SYRINGE (J1650) SC SCH (08:36)
[2018-08-26 14:00] VITALS: BP 120/58
--- NOTE | 2018-08-26 17:55 | IPN ---
DATE: 08/26/2018 SUBJECTIVE: Patient is seen and examined in the room today. Patient does not complain about the right hip pain. Patient said that she thinks that she may slide on the icy surface, but she does not remember whether she landed on the right, left or both hips. At the time of the encounter, the right hip pain is under control. Patient agreed for medical management for the right hip fracture. Patient stated that she has a history of hairline fracture of the left hip when she tried to avoid weightbearing on the right lower extremity, she feels the right hip start having increased pain. OBJECTIVE: VITAL SIGNS: Temperature is 97.5, pulse is 78, respirations 18, blood pressure 120/71, pulse oximetry 96% on room air. GENERAL: No sign of acute distress. Patient is alert and awake. HEENT: Normocephalic, atraumatic. Extraocular movements grossly intact. CARDIOVASCULAR: Positive S1, S2, regular rate. LUNGS: Clear to auscultation bilaterally. ABDOMEN: Soft, nontender, nondistended. EXTREMITIES: No edema. LABORATORY DATA: Sodium is 139, potassium 4.2, chloride 105, carbon dioxide 27, BUN 14, creatinine 0.96, GFR 59.8. Fasting glucose 118, calcium 8.2. ASSESSMENT AND PLAN: 1. Hip fracture. Patient had a mechanical fall by stepping on the slippery surface. Patient had a history of bilateral hip replacement. Imaging studies demonstrate right hip fracture. Orthopedic team consulted, consulted medical management. However, patient has noted to have increased left hip pain. Patient has history of hairline fracture of the left hip. Followup with left hip imaging study. 2. Diabetes. The patient using dietary control. Patient on consistent carbohydrate diet. 3. History of fatty liver. 4. Dyslipidemia. On statin. 5. Deep venous thrombosis (DVT) prophylaxis. On Lovenox.
[2018-08-26] MEDS: SIMVASTATIN 20 MG TAB PO SCH (21:20)
[2018-08-26 22:00] VITALS: BP 108/56
[2018-08-27] MEDS: ACETAMINOPHEN 500 MG TAB PO SCH ×3 (05:31→21:31)
[2018-08-27 06:00] VITALS: BP 135/67
[2018-08-27 06:36] LABS: HEMATOCRIT 38.7 % (36.0-47.0); MEAN CORPUSCULAR HEMOGLOBIN 34.9 pg (27.0-33.0); MEAN CORPUSCULAR HGB CONC 33.6 g/dl (32.0-36.5); PLATELET COUNT, AUTOMATED 133 10^3/uL (150-450); RED BLOOD COUNT 3.72 10^6/uL (4.00-5.40); WHITE BLOOD COUNT 7.5 10^3/uL (4.0-10.0)
[2018-08-27 06:58] LABS: CALCIUM LEVEL 7.6 MG/DL (8.8-10.2); CREATININE FOR GFR 0.97 MG/DL (0.55-1.30); GLOMERULAR FILTRATION RATE 59.1 (>39); MAGNESIUM LEVEL 2.2 MG/DL (1.8-2.4)
[2018-08-27] MEDS: POTASSIUM CHLORIDE 10 MEQ SR TABLET PO SCH (08:01)
[2018-08-27] MEDS: FLUoxetine 20 MG CAP PO SCH (08:01)
[2018-08-27] MEDS: FUROSEMIDE 40 MG TAB PO SCH ×2 (08:01→16:12)
[2018-08-27] MEDS: ENOXAPARIN 40 MG/0.4 ML SYRINGE (J1650) SC SCH (08:01)
[2018-08-27] MEDS: SENOKOT S TAB PO SCH ×2 (08:02→20:06)
[2018-08-27] MEDS: SPIRONOLACTONE 25 MG TAB PO SCH ×2 (08:02→16:12)
[2018-08-27] MEDS: PROPRANOLOL 20 MG TAB PO SCH (08:02)
[2018-08-27] MEDS: MULTIVITAMINS/MINERALS THERAP 1 TAB PO SCH (08:02)
[2018-08-27] MEDS: MOM 30ML SUSPENSION UDC PO SCH (08:03)
[2018-08-27] MEDS: MIRALAX *UNIT DOSE* 17GM PACKET PO SCH (08:03)
--- NOTE | 2018-08-27 08:28 | ECGEPIP ---
Stationary ECG Study [facility] - ED Test Date: 2018-08-25 Pat Name: VINICIO LEÓN Department: Room: - Gender: F Driver License Examiner: alcides : 1940 Requested By: LACHELLE Mancilla PA-C Order Number: [id number] Reading MD: Willard Barrios Measurements Intervals [place] Rate: 73 P: -7 [place]: 149 QRS: 51 QRSD: 82 T: 1 QT: 415 QTc: 458 Interpretive Statements SINUS RHYTHM DELAYED R WAVE PROGRESSION NONSPECIFIC ST T WAVE CHANGES PROLONGED QTC CW 08/13/[address] T WAVE RUIZ [facility] Electronically Signed On 08-27-2018 8:27:57 EST by Willard Barrios
[2018-08-27] MEDS: valACYclovir HCL 500 MG TAB PO SCH (09:24)
[2018-08-27 14:00] VITALS: BP 101/57
--- NOTE | 2018-08-27 19:34 | IPNPDOC ---
Text Note Date of Service The patient was seen on 08/27/18. NOTE SUBJECTIVE: Patient is seen and examined in the room today. Patient denies pain at rest. Hip pain occurred during weight bearing. Denies acute complaint. OBJECTIVE: VITAL SIGNS: Listed below. GENERAL: No sign of acute distress. Patient is alert and awake. HEENT: Normocephalic, atraumatic. Extraocular movements grossly intact. CARDIOVASCULAR: Positive S1, S2, regular rate. LUNGS: Clear to auscultation bilaterally. ABDOMEN: Soft, nontender, nondistended. EXTREMITIES: No edema. LABORATORY DATA: Listed below ASSESSMENT AND PLAN: #. Hip fracture. - Secondary to mechanical fall from slipping on the icy surface. Patient had a history of bilateral hip replacements. Patient had fall last year and she had hair line fracture of left hip. - Imaging study demonstrate right hip fracture. Orthopedic team consulted, consulted medical management. Left hip CT result is pending. #. Diabetes. - The patient is on dietary control at baseline. Patient on consistent carbohydrate diet. #. History of fatty liver. #. Dyslipidemia. On statin. #. Deep venous thrombosis (DVT) prophylaxis. On Lovenox. VS,Fishbone, I+O VS, Fishbone, I+O Laboratory Tests 08/27/18 06:15 Red Blood Count 3.72 L, Mean Corpuscular Volume 104.0 H, Mean Corpuscular Hemoglobin 34.9 H, Mean Corpuscular Hemoglobin Concent 33.6, Red Cell Distribution Width 13.0, Calcium Level 7.6 L Vital Signs Date Time Temp Pulse Resp B/P (MAP) Pulse Ox O2 Delivery O2 Flow Rate FiO2 08/27/18 14:00 98.0 61 17 101/57 (72) 93 08/25/18 20:08 Room Air I&O- Last 24 Hours up to 6 AM 08/27/18 06:00 Intake Total 1680 ml Output Total 700 ml Balance 980 ml HIWOT HARDING DO Aug 27, 2018 19:34
[2018-08-27] MEDS: SIMVASTATIN 20 MG TAB PO SCH (20:06)
[2018-08-27 22:00] VITALS: BP 113/54
--- NOTE | 2018-08-27 22:24 | REPVR ---
EXAM: CT Left Lower Extremity Without IV Contrast. Hip EXAM DATE/TIME: 08/26/2018 6:22 PM CLINICAL HISTORY: 77 years old, female; Pain; Hip; Left; Prior surgery; Additional info: Left hip pain TECHNIQUE: CT of the Left lower extremity without intravenous contrast was performed. Exam focused on the hip. All CT scans at this facility use at least one of these dose optimization techniques: automated exposure control; mA and/or kV adjustment per patient size (includes targeted exams where dose is matched to clinical indication); or iterative reconstruction. Coronal and sagittal reformatted images were created and reviewed. COMPARISON: No relevant prior studies available. FINDINGS: Bones/joints: Osteopenia. Total left hip arthroplasty in place. No evidence of hardware complication. No CT evidence of acute fracture or dislocation. Old fractures of the left inferior pubic ramus and left parasymphyseal pubic bone. Degenerative changes of the left sacroiliac joint and pubic symphysis. Soft tissues: Mild deep subcutaneous edema along the anterolateral aspect of the proximal thigh. No organized collection. Reproductive: Status post hysterectomy. IMPRESSION: 1. Total left hip arthroplasty in anatomic alignment without evidence of hardware complication. 2. Additional findings, as above. Electronically signed by: Abdiaziz Moss On 08/27/2018 22:23:52 PM
[2018-08-28 06:00] VITALS: BP 117/60
[2018-08-28] MEDS: ACETAMINOPHEN 500 MG TAB PO SCH ×3 (06:54→21:05)
[2018-08-28 06:56] LABS: HEMATOCRIT 39.2 % (36.0-47.0); HEMOGLOBIN 13.2 g/dl (12.0-15.5); MEAN CORPUSCULAR HEMOGLOBIN 34.8 pg (27.0-33.0); MEAN CORPUSCULAR HGB CONC 33.7 g/dl (32.0-36.5); MEAN CORPUSCULAR VOLUME 103.4 fl (80.0-96.0); PLATELET COUNT, AUTOMATED 138 10^3/uL (150-450); RED BLOOD COUNT 3.79 10^6/uL (4.00-5.40)
[2018-08-28 07:17] LABS: CALCIUM LEVEL 7.8 MG/DL (8.8-10.2); CREATININE FOR GFR 0.99 MG/DL (0.55-1.30); GLOMERULAR FILTRATION RATE 57.8 (>39); MAGNESIUM LEVEL 2.2 MG/DL (1.8-2.4); POTASSIUM SERUM 4.3 MEQ/L (3.5-5.1)
[2018-08-28] MEDS: MIRALAX *UNIT DOSE* 17GM PACKET PO SCH (09:00)
[2018-08-28] MEDS: MOM 30ML SUSPENSION UDC PO SCH (09:00)
[2018-08-28] MEDS: ENOXAPARIN 40 MG/0.4 ML SYRINGE (J1650) SC SCH (09:31)
[2018-08-28] MEDS: MULTIVITAMINS/MINERALS THERAP 1 TAB PO SCH (09:31)
[2018-08-28] MEDS: valACYclovir HCL 500 MG TAB PO SCH (09:31)
[2018-08-28] MEDS: SPIRONOLACTONE 25 MG TAB PO SCH ×2 (09:31→17:22)
[2018-08-28] MEDS: FLUoxetine 20 MG CAP PO SCH (09:31)
[2018-08-28] MEDS: POTASSIUM CHLORIDE 10 MEQ SR TABLET PO SCH (09:31)
[2018-08-28] MEDS: FUROSEMIDE 40 MG TAB PO SCH ×2 (09:32→17:22)
[2018-08-28] MEDS: PROPRANOLOL 20 MG TAB PO SCH (09:32)
[2018-08-28] MEDS: SENOKOT S TAB PO SCH ×3 (09:44→21:05)
--- NOTE | 2018-08-28 10:10 | IPN ---
DATE: 08/28/2018 CHIEF COMPLAINT: Right hip pain and followup of CT scan in the setting of bilateral total hip arthroplasty. HISTORY OF PRESENT ILLNESS: This 77-year-old female was initially seen by Dr. Art for pain in her left hip. A CT scan was performed. This showed a nondisplaced spiral fracture of the left proximal femur. This was in the setting of what appears to be a well fixed left total hip arthroplasty. Subsequently, she was complaining about pain on the right side and a CT scan of the right hip was ordered also and that also has a right total hip arthroplasty. CT scan was reviewed by myself as well as the radiologist. This shows no acute fracture. The component appears solid on the right side. There is some swelling and what appears to be some ecchymosis. ASSESSMENT/PLAN: I think that she can be still weightbearing as tolerated on the right side and Dr. Art will follow her up in terms of the left hip fracture in the setting of well fixed total hip arthroplasty. No concerns with the right side.
[2018-08-28 10:28] VITALS: BP 132/63
[2018-08-28 14:00] VITALS: BP 133/60
--- NOTE | 2018-08-28 19:28 | IPNPDOC ---
Text Note Date of Service The patient was seen on 08/28/18. NOTE SUBJECTIVE: Patient is seen and examined in the room today. CT imaging of hips discussed with patient. Patient states hip pain is improving. Denies acute complaint. OBJECTIVE: VITAL SIGNS: Listed below. GENERAL: No sign of acute distress. Patient is alert and awake. HEENT: Normocephalic, atraumatic. Extraocular movements grossly intact. CARDIOVASCULAR: Positive S1, S2, regular rate. LUNGS: Clear to auscultation bilaterally. ABDOMEN: Soft, nontender, nondistended. EXTREMITIES: No edema. LABORATORY DATA: Listed below ASSESSMENT AND PLAN: #. Hip fracture. - Secondary to mechanical fall from slipping on the icy surface. Patient had a history of bilateral hip replacements. Patient had fall last year and she had fracture of left hip. - Imaging study demonstrate acute right hip fracture. Orthopedic team consulted, consulted medical management. Left hip CT result demonstrates old fracture. - Continue physical therapy and occupational therapy. #. Diabetes. - The patient is on dietary control at baseline. Patient on consistent carbohydrate diet. #. History of fatty liver. #. Dyslipidemia. On statin. #. Deep venous thrombosis (DVT) prophylaxis. On Lovenox. VS,Fishbone, I+O VS, Fishbone, I+O Laboratory Tests 08/28/18 06:37 Red Blood Count 3.79 L, Mean Corpuscular Volume 103.4 H, Mean Corpuscular Hemoglobin 34.8 H, Mean Corpuscular Hemoglobin Concent 33.7, Red Cell Distribution Width 13.1, Calcium Level 7.8 L Vital Signs Date Time Temp Pulse Resp B/P (MAP) Pulse Ox O2 Delivery O2 Flow Rate FiO2 08/28/18 14:00 98.2 67 17 133/60 (84) 90 08/25/18 20:08 Room Air I&O- Last 24 Hours up to 6 AM 08/28/18 06:00 Intake Total 1500 ml Output Total 851 ml Balance 649 ml HIWOT HARDING DO Aug 28, 2018 19:28
[2018-08-28] MEDS: SIMVASTATIN 20 MG TAB PO SCH (21:05)
[2018-08-28 22:00] VITALS: BP 130/61
[2018-08-29 06:00] VITALS: BP 126/60
[2018-08-29] MEDS: ACETAMINOPHEN 500 MG TAB PO SCH ×3 (06:00→21:45)
[2018-08-29 07:41] LABS: HEMATOCRIT 38.8 % (36.0-47.0); HEMOGLOBIN 13.2 g/dl (12.0-15.5); MEAN CORPUSCULAR HEMOGLOBIN 34.7 pg (27.0-33.0); MEAN CORPUSCULAR VOLUME 102.1 fl (80.0-96.0); PLATELET COUNT, AUTOMATED 141 10^3/uL (150-450); WHITE BLOOD COUNT 7.7 10^3/uL (4.0-10.0)
[2018-08-29 08:29] LABS: BLOOD UREA NITROGEN 15 MG/DL (7-18); CARBON DIOXIDE LEVEL 27 MEQ/L (21-32); CHLORIDE LEVEL 105 MEQ/L (98-107); CREATININE FOR GFR 0.95 MG/DL (0.55-1.30); GLOMERULAR FILTRATION RATE > 60.0 (>39); GLUCOSE, FASTING 117 MG/DL (70-100); MAGNESIUM LEVEL 2.3 MG/DL (1.8-2.4); POTASSIUM SERUM 4.1 MEQ/L (3.5-5.1); SODIUM LEVEL 140 MEQ/L (136-145)
[2018-08-29] MEDS: SENOKOT S TAB PO SCH ×2 (08:30→20:04)
[2018-08-29] MEDS: MOM 30ML SUSPENSION UDC PO SCH (08:30)
[2018-08-29] MEDS: MIRALAX *UNIT DOSE* 17GM PACKET PO SCH (08:30)
[2018-08-29] MEDS: FLUoxetine 20 MG CAP PO SCH (09:09)
[2018-08-29] MEDS: valACYclovir HCL 500 MG TAB PO SCH (09:10)
[2018-08-29] MEDS: MULTIVITAMINS/MINERALS THERAP 1 TAB PO SCH (09:11)
[2018-08-29] MEDS: FUROSEMIDE 40 MG TAB PO SCH ×2 (09:12→16:39)
[2018-08-29] MEDS: POTASSIUM CHLORIDE 10 MEQ SR TABLET PO SCH (09:12)
[2018-08-29] MEDS: SPIRONOLACTONE 25 MG TAB PO SCH ×2 (09:13→16:39)
[2018-08-29] MEDS: PROPRANOLOL 20 MG TAB PO SCH (09:15)
[2018-08-29] MEDS: ENOXAPARIN 40 MG/0.4 ML SYRINGE (J1650) SC SCH (09:16)
[2018-08-29 09:55] VITALS: BP 132/63
[2018-08-29 14:00] VITALS: BP 128/73
[2018-08-29 14:05] VITALS: BP 130/71
--- NOTE | 2018-08-29 15:14 | IPNPDOC ---
Text Note Date of Service The patient was seen on 08/29/18. NOTE SUBJECTIVE: Patient is seen and examined in the room today. Patient states her pain is under control. Denies acute complaint. OBJECTIVE: VITAL SIGNS: Listed below. GENERAL: No sign of acute distress. Patient is alert and awake. HEENT: Normocephalic, atraumatic. Extraocular movements grossly intact. CARDIOVASCULAR: Positive S1, S2, regular rate. LUNGS: Clear to auscultation bilaterally. ABDOMEN: Soft, nontender, nondistended. EXTREMITIES: No edema. LABORATORY DATA: Listed below ASSESSMENT AND PLAN: #. Hip fracture. - Secondary to mechanical fall from slipping on the icy surface. Patient had a history of bilateral hip replacements. Patient had fall last year and she had fracture of left hip. - Imaging study demonstrate acute right hip fracture. Orthopedic team consulted, consulted medical management. Left hip CT result demonstrates old fracture. - Continue physical therapy and occupational therapy. Patient may benefit from subacute rehab. #. Diabetes. - The patient is on dietary control at baseline. Patient on consistent carbohydrate diet. #. History of fatty liver. #. Dyslipidemia. On statin. #. Deep venous thrombosis (DVT) prophylaxis. On Lovenox. VS,Fishbone, I+O VS, Fishbone, I+O Laboratory Tests 08/29/18 06:58 Red Blood Count 3.80 L, Mean Corpuscular Volume 102.1 H, Mean Corpuscular Hemoglobin 34.7 H, Mean Corpuscular Hemoglobin Concent 34.0, Red Cell Distribution Width 13.1, Calcium Level 8.0 L Vital Signs Date Time Temp Pulse Resp B/P (MAP) Pulse Ox O2 Delivery O2 Flow Rate FiO2 08/29/18 14:05 98.8 72 14 130/71 (90) 97 08/25/18 20:08 Room Air I&O- Last 24 Hours up to 6 AM 08/29/18 05:59 Intake Total 2400 ml Output Total 200 ml Balance 2200 ml HIWOT HARDING DO Aug 29, 2018 15:14
[2018-08-29] MEDS: SIMVASTATIN 20 MG TAB PO SCH (20:04)
[2018-08-29 22:00] VITALS: BP 133/66
[2018-08-30] MEDS: ACETAMINOPHEN 500 MG TAB PO SCH (05:23)
[2018-08-30 06:00] VITALS: BP 114/59
[2018-08-30 07:00] LABS: HEMATOCRIT 39.5 % (36.0-47.0); HEMOGLOBIN 13.2 g/dl (12.0-15.5); MEAN CORPUSCULAR HEMOGLOBIN 34.8 pg (27.0-33.0); MEAN CORPUSCULAR HGB CONC 33.4 g/dl (32.0-36.5); MEAN CORPUSCULAR VOLUME 104.2 fl (80.0-96.0); PLATELET COUNT, AUTOMATED 156 10^3/uL (150-450); RED BLOOD COUNT 3.79 10^6/uL (4.00-5.40); WHITE BLOOD COUNT 6.8 10^3/uL (4.0-10.0)
[2018-08-30 08:18] LABS: CALCIUM LEVEL 7.9 MG/DL (8.8-10.2); CREATININE FOR GFR 0.96 MG/DL (0.55-1.30); GLOMERULAR FILTRATION RATE 59.8 (>39); MAGNESIUM LEVEL 2.2 MG/DL (1.8-2.4); POTASSIUM SERUM 3.9 MEQ/L (3.5-5.1)
[2018-08-30 08:25] VITALS: BP 114/59
[2018-08-30] MEDS: FLUoxetine 20 MG CAP PO SCH (08:25)
[2018-08-30] MEDS: PROPRANOLOL 20 MG TAB PO SCH (08:25)
[2018-08-30] MEDS: SPIRONOLACTONE 25 MG TAB PO SCH (08:25)
[2018-08-30] MEDS: POTASSIUM CHLORIDE 10 MEQ SR TABLET PO SCH (08:25)
[2018-08-30] MEDS: ENOXAPARIN 40 MG/0.4 ML SYRINGE (J1650) SC SCH (08:25)
[2018-08-30] MEDS: MULTIVITAMINS/MINERALS THERAP 1 TAB PO SCH (08:25)
[2018-08-30] MEDS: valACYclovir HCL 500 MG TAB PO SCH (08:26)
[2018-08-30] MEDS: FUROSEMIDE 40 MG TAB PO SCH (08:26)
[2018-08-30] MEDS: MOM 30ML SUSPENSION UDC PO SCH (08:31)
[2018-08-30] MEDS: MIRALAX *UNIT DOSE* 17GM PACKET PO SCH (08:31)
[2018-08-30] MEDS: SENOKOT S TAB PO SCH (08:31)
[2018-08-30] MEDS ORDERED: LOVE1INJ SC (08:43)
== END 2018-08-30 10:45 | DRG 536 ==
LOC: M ED 11:32 → M ED INP 18:05 → M MS5PR 22:05 → OBSVTOIN 08-26 07:58
PROVIDERS: ADMIT Internal Medicine; ATTEND Internal Medicine
DX: S79.09 Other physeal fracture of upper end of femur (principal); M97.01XA Periprosthetic fracture around internal prosthetic right hip joint, initial encounter; W00.0XXA Fall on same level due to ice and snow, initial encounter; Y92.248 Other public administrative building as the place of occurrence of the external cause; M81.0 Age-related osteoporosis without current pathological fracture; E87.6 Hypokalemia; F32.9 Major depressive disorder, single episode, unspecified; K76.0 Fatty (change of) liver, not elsewhere classified; E78.5 Hyperlipidemia, unspecified; E11.9 Type 2 diabetes mellitus without complications; Z96.643 Presence of artificial hip joint, bilateral; Z79.899 Other long term (current) drug therapy; Z88.2 Allergy status to sulfonamides; Z91.018 Allergy to other foods; Z91.048 Other nonmedicinal substance allergy status

== ENCOUNTER → 2018-09-06 | Outpatient (REF) | payer MEDICARE, BC ==
[~2018-09-06] MED LIST changes: +FURO40TA2 PO; +LOVE1INJ SC
[2018-09-06 10:33] LABS: HEMATOCRIT 42.3 % (36.0-47.0); HEMOGLOBIN 13.8 g/dl (12.0-15.5); MEAN CORPUSCULAR HEMOGLOBIN 34.6 pg (27.0-33.0); MEAN CORPUSCULAR HGB CONC 32.6 g/dl (32.0-36.5); PLATELET COUNT, AUTOMATED 211 10^3/uL (150-450); RED BLOOD COUNT 3.99 10^6/uL (4.00-5.40); WHITE BLOOD COUNT 7.6 10^3/uL (4.0-10.0)
[2018-09-06 10:55] LABS: BLOOD UREA NITROGEN 18 MG/DL (7-18); CALCIUM LEVEL 8.5 MG/DL (8.8-10.2); CARBON DIOXIDE LEVEL 29 MEQ/L (21-32); CHLORIDE LEVEL 103 MEQ/L (98-107); CREATININE FOR GFR 0.91 MG/DL (0.55-1.30); GLOMERULAR FILTRATION RATE > 60.0 (>39); GLUCOSE, FASTING 103 MG/DL (70-100); POTASSIUM SERUM 4.2 MEQ/L (3.5-5.1); SODIUM LEVEL 140 MEQ/L (136-145)
== END ==
PROVIDERS: ATTEND Internal Medicine
DX: I10 Essential (primary) hypertension (principal); Z79.899 Other long term (current) drug therapy

== ENCOUNTER → 2018-10-06 | Outpatient (REF) | payer MEDICARE | LOC: M LAB REF 12:29 | PROVIDERS: ATTEND Internal Medicine | DX: K74.69 Other cirrhosis of liver (principal) ==

== ENCOUNTER → 2019-05-30 | Outpatient (REF) | payer MEDICARE ==
[~2019-05-30] MED LIST changes: +CHOL100029 PO; +CYAN100049 PO; -SIMV20TA2 PO; +SIMV20TA22 PO; -VITA10002 PO; -VITAD1000T PO
== END ==
LOC: M LAB REF 13:43
PROVIDERS: ATTEND Internal Medicine
DX: K74.69 Other cirrhosis of liver (principal)

== ENCOUNTER → 2020-01-11 | Outpatient (REF) | payer MEDICARE ==
[~2020-01-11] MED LIST changes: +ANAS1TAB2 PO; +FLUO20CA20 PO; -FLUO20CA8 PO
== END ==
LOC: M LAB REF 11:34
PROVIDERS: ATTEND Radiology Diagnostic Radiology
DX: C50.812 Malignant neoplasm of overlapping sites of left female breast (principal)

== ENCOUNTER → 2020-03-13 | Outpatient (CLI) | payer MEDICARE ==
[2020-03-13 15:39] VITALS: BP 122/68
--- NOTE | 2020-03-13 18:10 | ROOPDOC ---
[facility] Report Of Operation Report of Operation DATE OF PROCEDURE: 03/13/20 PREPROCEDURE DIAGNOSES: left breast cancer without sono visible clip and left suspicious lymph node POSTPROCEDURE DIAGNOSES: same PROCEDURE: US guided biopsy of the left suspicious lymph node with clip placement and additional clip placement into the left breast cancer SURGEON: Sheila Tipton ANESTHESIA: local ESTIMATED BLOOD LOSS: minimal COMPLICATIONS: none REMARKS: new clips are visile on post bx mammo DESCRIPTION OF PROCEDURE: Lidocaine 1% LOT [id number] Expiration 01/2023 Sodium Bicarbonate 8.4% LOT [id number] Expiration 11/2020 Hydromark clip LOT [id number] Expiration 10/2022 SHAPE 4 LEFT LYMPH NODE Hydromark clip LOT [id number] Expiration 10/2022 SHAPE 3 LEFT BREAST CANCER Bx device: TEMNO 18G LOT: [id number] Informed consent was obtained. The most common risk and possible complications including bleeding, hematoma, bruising, infection, injury to surrounding structures were explained to the patient and the patient expressed understanding. Patient was placed on the bed. Appropriate time out was done stating patients name, date of , and the procedure to be performed. The left breast and axilla were prepped and draped in the usual fashion. The ultrasound was used to confirm the location of the abnormal left axillary lymph node and left breast cancer in upper outer quadrant. Plain Lidocaine 1% and 8.4% sodium bicarbonate 10:1 mix was used to anesthetize the skin, the biopsy site and tissues along the anticipated biopsy tract. Small skin incision was made with blade number 11. TEMNO biopsy device cannula with introducer was inserted through the incision and advanced under the ultrasound guidance to position immediately adjacent to the abnormal lymph node in the left axilla. Next, the introducer was removed and TEMBO 18 G biopsy device was places in the cannula. Pre-biopsy imaging, and post-biopsy imaging were captured. Five good core biopsies were taken at various levels of the lesion. Specimen was placed in formaldehyde, labeled with appropriate biopsy site and patients name, and sent to pathology for evaluation. Next, the biopsy device and the cannula were withdrawn and a clip introducer was inserted into the lymph node biopsy site. The SHAPE 4 Hydromark clip was deployed under sonographic guidance. Post-clip placement image was captured. Manual pressure over the biopsy cavity and tract was held after the clip introducer was withdrawn. No bleeding was noted upon removal of the pressure. Next, our attention was shifted toward the left breast cancer in upper outer quadrant. No sono visible clip is present in the mass. Plain Lidocaine 1% and 8.4% sodium bicarbonate 10:1 mix was used to anesthetize the skin, and the anticipated tract. Small skin incision was made with blade number 11. A clip introducer was inserted into the left upper outer quadrant mass. The SHAPE 3 Hydromark clip was deployed under sonographic guidance. Post-clip placement image was captured. Manual pressure over the biopsy cavity and tract was held after the clip introducer was withdrawn. No bleeding was noted upon removal of the pressure. Post-biopsy mammogram of the left breast was obtained and showed 2 new clips in expected position. Postprocedural dressing was placed. Patient tolerated procedure well. Discharge instructions were discussed with the patient and the patient expressed understanding. SHEILA TIPTON DO Mar 13, 2020 18:10
--- NOTE | 2020-03-29 08:49 | REP ---
LEFT AXILLARY ULTRASOUND HISTORY: Left axillary lymph node biopsy and clip placement for left breast mass. FINDINGS: Sonographic guidance is provided to Dr. Morejon who performed left axillary lymph node biopsy and clip placement procedure. A clip was placed in the left breast mass as well under sonographic guidance. MEENU
--- NOTE | 2020-03-29 08:51 | REP ---
DIGITAL DIAGNOSTIC UNILATERAL LEFT BREAST MAMMOGRAPHY: 2-VIEWS HISTORY: Marker clip placement mammographic views. Left breast mass. COMPARISON: 04/04/2018. FINDINGS: Craniocaudad and mediolateral oblique views of the left breast are obtained. There are two needle biopsy marker clips and a spiculated mass in the left breast upper outer quadrant. This lesion measures 2.6 cm in greatest diameter. There are scattered coarse calcifications elsewhere in the left breast. There is a needle biopsy marker clip also visible on the MLO view in the axilla in a lymph node. The lymph node measures 2 cm in greatest diameter and appears to have a hilar notch. IMPRESSION: Marker clips in place as above. This study was interpreted with the aid of an FDA approved computer-aided detection device MTDD
== END ==
LOC: M WHCPRO 12:52
PROVIDERS: ATTEND Surgery
DX: C77.3 Secondary and unspecified malignant neoplasm of axilla and upper limb lymph nodes (principal); C50.912 Malignant neoplasm of unspecified site of left female breast

== ENCOUNTER → 2020-03-13 | Outpatient (CLI) | payer MEDICARE ==
[2020-03-13 17:09] LABS: HEMATOCRIT 39.3 % (36.0-47.0); HEMOGLOBIN 13.3 g/dl (12.0-15.5); MEAN CORPUSCULAR HEMOGLOBIN 36.4 pg (27.0-33.0); MEAN CORPUSCULAR HGB CONC 33.8 g/dl (32.0-36.5); MEAN CORPUSCULAR VOLUME 107.7 fl (80.0-96.0); PLATELET COUNT, AUTOMATED 213 10^3/uL (150-450); RED BLOOD COUNT 3.65 10^6/uL (4.00-5.40); WHITE BLOOD COUNT 9.8 10^3/uL (4.0-10.0)
[2020-03-13 17:23] LABS: INR 1.55; PROTHROMBIN TIME 18.9 SECONDS (11.8-14.0)
[2020-03-13 17:24] LABS: PARTIAL THROMBOPLASTIN TIME 38.3 SECONDS (25.0-38.4)
[2020-03-13 17:44] LABS: ALBUMIN 2.7 GM/DL (3.2-5.2); BILIRUBIN,TOTAL 2.1 MG/DL (0.2-1.0); CALCIUM LEVEL 8.8 MG/DL (8.8-10.2); CREATININE FOR GFR 1.38 MG/DL (0.55-1.30); GLOMERULAR FILTRATION RATE 39.2 (>32); POTASSIUM SERUM 3.6 MEQ/L (3.5-5.1); TOTAL PROTEIN 6.3 GM/DL (6.4-8.2)
== END ==
LOC: M PLALAB 15:21
PROVIDERS: ATTEND Surgery
DX: C77.3 Secondary and unspecified malignant neoplasm of axilla and upper limb lymph nodes (principal); C50.912 Malignant neoplasm of unspecified site of left female breast

== ENCOUNTER → 2020-03-20 | Outpatient (CLI) | payer MEDICARE ==
--- NOTE | 2020-03-29 08:52 | REP ---
FOUR QUADRANT ASCITES SURVEY ULTRASOUND HISTORY: Evaluate ascites. FINDINGS: Four quadrant scanning is performed. There is a large amount of diffuse abdominal ascites. Ascites is visible in the flanks bilaterally. IMPRESSION: Large amount of diffuse abdominal ascites. MTDD
== END ==
LOC: M RAD 09:26
PROVIDERS: ATTEND Physician Assistant Medical
DX: R18.8 Other ascites (principal)

== ENCOUNTER → 2020-04-12 | Outpatient (CLI) | payer MEDICARE ==
--- NOTE | 2020-04-12 11:18 | REP ---
INDICATION: LT BREAST MASS,BREASST CA,COMPARE left breast carcinoma. Positive left breast needle biopsy and left axillary lymph node biopsy. COMPARISON: Comparison sonography December 26, 2019.. TECHNIQUE: Targeted left breast and left axillary sonography. FINDINGS: Scanning in the 1 o'clock position in the area of the mass again demonstrates a complex slightly hypoechoic lobulated mass lesion measuring 2.3 x 1.7 x 1.7 cm. This contains a previously placed biopsy marker clip. Similar dimensions were observed in November ultrasound, 2.5 x 2.1 by 2.4 cm. Scanning in the left axilla demonstrates a previously biopsied lymph node containing a clip. The lymph node measured 1.4 x 1.2 x 0.7 cm. Is thickened anechoic cortical margin is seen in this node. Superior to this there is a 1.1 x 0.9 x 0.4 cm node and a 0.6 x 0.6 x 0.4 cm lymph node. These 2 smaller lymph nodes appear normal with a very thin cortical margin surrounding echogenic hilar fat. IMPRESSION: Persistent mass by ultrasound left breast. Thickened cortex and 1 of the axillary lymph nodes remains. Marker clips are noted at both sites. BI-RADS category 6 known breast malignancy. <Electronically signed by Nilo López > 04/12/20 [id number]
== END ==
LOC: M WHC 10:02
PROVIDERS: ATTEND Specialist
DX: C50.912 Malignant neoplasm of unspecified site of left female breast (principal)

== ENCOUNTER 2020-05-31 14:51 | Emergency (ER) | payer MEDICARE ==
[~2020-05-31] VITALS: Ht 167.6 cm; Wt 86.4 kg
--- NOTE | 2020-05-31 16:35 | REP ---
INDICATION: ALTERED MENTAL STATUS. COMPARISON: Comparison chest x-ray August 13, 2016. TECHNIQUE: Two views.. FINDINGS: Right hemidiaphragm is elevated and lungs are exposed at a lesser level of inspiration today. The heart is not felt to be enlarged. The pleural angles appear sharp. Pulmonary vasculature is not increased. No definite infiltrate. There is diffuse osteopenia. IMPRESSION: Low level of inspiration. Elevated right hemidiaphragm. No focal infiltrates seen.. <Electronically signed by Nilo López > 05/31/20 [id number]
--- NOTE | 2020-05-31 16:52 | REP ---
INDICATION: distention COMPARISON: Comparison abdomen pelvis CT study is from August 15, 2019.. TECHNIQUE: Helical scanning is acquired in 4 mm axial images were reformatted. Coronal and sagittal MPR images were generated and reviewed. FINDINGS: Digital preliminary sales consultant radiograph demonstrates calcified gallstones and mild gaseous distention of the transverse colon question ileus. The lung bases are essentially clear. There is moderate to large amount of diffuse abdominal ascites. Layering gallstones are noted in the distended gallbladder. Gallbladder measures 10.8 cm in greatest anteroposterior dimension. Its wall is not visibly thickened. No biliary ductal dilation is observed. There is a cyst in the periphery of the right lobe of the liver measuring 2.1 cm in greatest diameter. No other focal liver lesion is seen. A macro nodular liver contour and a somewhat prominent left lobe are seen suggestive of cirrhosis. The spleen is not enlarged. There are venous collaterals visible in the left upper quadrant of the abdomen however. Cystic changes are again noted in the pancreas as seen on August 15, 2019. The largest of these is in the pancreatic head. There is a small calcification in the pancreatic head along the right lateral margin of the cyst. No regional adenopathy. There is diffuse edema in the anterior abdominal and flank regions in the subcutaneous fat layer consistent with anasarca. No abdominal wall defect is seen. No evidence of bowel obstruction. The appendix is surgically absent. Uterus is surgically absent. Ephraim artifact is seen in the lower pelvic cuts due to bilateral hip arthroplasties. IMPRESSION: Moderate to large amount of diffuse abdominal ascites. Diffuse extra abdominal subcutaneous fat edema question anasarca. Cholelithiasis with distended gallbladder. Stable pancreatic cysts. <Electronically signed by Nilo López > 05/31/20 [id number]
[2020-05-31 17:10] LABS: BASO # 0.1 10^3/uL (0.0-0.2); BASO % 0.5 % (0.0-1.0); EOS # 0.1 10^3/uL (0.0-0.5); EOS % 0.8 % (0.0-3.0); HEMATOCRIT 43.5 % (36.0-47.0); HEMOGLOBIN 14.6 g/dl (12.0-15.5); LYMPH # 1.5 10^3/uL (1.5-5.0); MEAN CORPUSCULAR HEMOGLOBIN 35.9 pg (27.0-33.0); MEAN CORPUSCULAR HGB CONC 33.6 g/dl (32.0-36.5); MEAN CORPUSCULAR VOLUME 106.9 fl (80.0-96.0); MONO # 1.4 10^3/uL (0.0-0.8); MONO % 13.2 % (0.0-5.0); NEUTROPHILS # 7.4 10^3/uL (1.5-8.5); NEUTROPHILS % 69.4 % (36.0-66.0); PLATELET COUNT, AUTOMATED 205 10^3/uL (150-450); RED BLOOD COUNT 4.07 10^6/uL (4.00-5.40); WHITE BLOOD COUNT 10.7 10^3/uL (4.0-10.0)
[2020-05-31 17:14] LABS: INR 1.46; PROTHROMBIN TIME 18.1 SECONDS (12.5-14.3)
[2020-05-31 17:23] LABS: OSMOLALITY SERUM 302 MOSM/KG (280-301)
[2020-05-31 17:31] LABS: BLOOD UREA NITROGEN 59 MG/DL (7-18); CARBON DIOXIDE LEVEL 20 MEQ/L (21-32); CHLORIDE LEVEL 103 MEQ/L (98-107); CREATININE FOR GFR 2.83 MG/DL (0.55-1.30); GLOMERULAR FILTRATION RATE 17.1 (>32); GLUCOSE, FASTING 117 MG/DL (70-100); POTASSIUM SERUM 4.6 MEQ/L (3.5-5.1); SODIUM LEVEL 134 MEQ/L (136-145)
[2020-05-31 17:32] LABS: ALBUMIN 2.5 GM/DL (3.2-5.2); ALT/SGPT 33 U/L (12-78); BILIRUBIN,DIRECT 1.3 MG/DL (0.0-0.2); BILIRUBIN,TOTAL 2.7 MG/DL (0.2-1.0); CALCIUM LEVEL 8.8 MG/DL (8.8-10.2); CK-MB VALUE MASS 5.7 NG/ML (<3.6); CPK CREATINE PHOSPHOKINASE 190 U/L (26-192); LIPASE 48 U/L (73-393); TOTAL PROTEIN 6.4 GM/DL (6.4-8.2); TROPONIN I < 0.02 NG/ML (< 0.10)
[2020-05-31] MEDS ORDERED: SPIR-10 PO (18:50)
[2020-05-31] MEDS ORDERED: FURO40TA2 PO (18:50)
[2020-05-31 22:49] VITALS: BP 108/53
--- NOTE | 2020-06-01 10:19 | ECGEPIP ---
[facility] - ED Test Date: 2020-05-31 Pat Name: VINICIO LEÓN Department: Room: - Gender: Female [employer] Treater: : 1940 Requested By: Alejandrina Vegas Order Number: [id number] Reading MD: Willard Barrios Measurements Intervals [place] Rate: 83 P: [place]: 0 QRS: 28 QRSD: 84 T: -18 QT: 387 QTc: 455 Interpretive Statements ATRIAL FIBRILLATION LOW QRS VOLTAGE IN PRECORDIAL LEADS NONSPECIFIC T-WAVE ABNORMALITY ABNORMAL RHYTHM ECG BORDERLINE PROLONGED QTC CW 08/25/[address] T WAVE CHANGES Electronically Signed on 06-01-2020 10:19:24 EST by Willard Barrios
== END 2020-05-31 22:59 | disposition short-term general hospital (02) ==
LOC: M ED 14:51
DX: R18.8 Other ascites (principal); K75.81 Nonalcoholic steatohepatitis (NASH); K74.60 Unspecified cirrhosis of liver; N19 Unspecified kidney failure; I11.9 Hypertensive heart disease without heart failure; E11.9 Type 2 diabetes mellitus without complications; C50.919 Malignant neoplasm of unspecified site of unspecified female breast; Z88.6 Allergy status to analgesic agent; Z88.2 Allergy status to sulfonamides; Z91.040 Latex allergy status; Z91.048 Other nonmedicinal substance allergy status; Z79.899 Other long term (current) drug therapy
CPT/HCPCS: 71046; 74176; 80048; 80076; 82140; 82550; 82553; 83690; 83930; 84443; 84484; 85025; 85610; 93005; 93041; 94760; 99285; U0002